=== PATIENT | female | born 1940 | race Caucasian/White ===

== ENCOUNTER 2019-07-19 10:50 | Emergency (ER) | payer OTHER, SELFPAY ==
[2019-07-19 11:12] VITALS: BP 145/65; PULSE 80; RESP 16; TEMP 36.2; O2SAT 97
--- NOTE | 2019-07-19 11:20 | ED.EAR ---
HPI - Ear Problem General Chief complaint: Ear Stated complaint: clogged ears Time Seen by Provider: 07/19/19 11:20 Source: patient and RN notes reviewed Mode of arrival: ambulatory Limitations: no limitations History of Present Illness HPI Narrative: 78-year-old female with history of tracheostomy presents with concern for decreased hearing. Reports bilateral decreased hearing progressively worsening over the course of a year. Is concerned her ears are clogged, denies any intervention for this. Denies any previous visits to her doctor for this. Denies any drainage or ear pain. Denies nasal congestion, rhinorrhea, sore throat, fever, shortness of breath, cough. MD Complaint: decreased hearing Related Data Home Medications Medication Instructions Recorded Confirmed carbidopa 25 mg-levodopa 100 mg 1 tablet PO TID 03/29/19 06/03/19 tablet ipratropium 0.5 mg-albuterol 3 mg 3 ml INHALATION QID PRN 03/29/19 06/03/19 (2.5 mg base)/3 mL nebulization soln ipratropium bromide 0.02 % 2.5 ml INHALATION QID PRN 03/29/19 06/03/19 solution for inhalation metoclopramide HCl 10 mg tablet 10 mg PO Q6H PRN 03/29/19 06/03/19 Allergies Allergy/AdvReac Type Severity Reaction Status Date / Time No Known Allergies Allergy Verified 05/16/16 12:32 Review of Systems Review of Systems: Narrative: CONSTITUTIONAL: Denies malaise, chills, sweats, or fever. EYES: Denies visual changes, redness, or discharge. ENT: Denies rhinorrhea, congestion, sinus pain, otalgia or sore throat. Reports bilateral decreased hearing CARDIOVASCULAR: Denies chest pain, palpitations, or edema. RESPIRATORY: Denies cough or dyspnea. NEUROLOGIC: Denies numbness, weakness, or headache. All systems reviewed & are unremarkable except as noted in HPI and below PMFSH Social History Social History Smoking status: Former smoker Second hand tobacco smoke exposure: No Smoking end date: 03/23/02 Alcohol intake: current Comments At time of signature, agree with nursing past medical, surgical, social and family history. There is no relevant family history pertinent to the presenting complaint Exam Narrative: Exam Narrative: GENERAL: Well-appearing, well-nourished, and in no acute distress. HEAD: Normocephalic EYES: PERRLA, conjunctivae clear ENT: Nares clear, no rhinorrhea. Mucous membranes moist. TM not visible due to cerumen impaction; no tragal tenderness. NECK: Supple. Tracheostomy intact, patent CHEST: No respiratory distress. Speaks in full sentences. HEART: Regular rate and rhythm. SKIN: Warm, dry NEURO: Alert and oriented x3. PSYCH: Normal mood and affect Course Course Emergency Course: Patient is aware of diagnosis, understands and agrees to treatment plan. Anticipatory guidance given. Patient agrees to follow-up as directed and is aware of reasons to seek care at the emergency department. Portions of this record may have been created with voice recognition software Vital Signs Vital signs: Vital Signs Temperature 97.2 F L 07/19/19 11:12 Pulse Rate 80 07/19/19 11:12 Respiratory Rate 16 07/19/19 11:12 Blood Pressure 145/65 H 07/19/19 11:12 Pulse Oximetry 97 07/19/19 11:12 Temperature 97.2 F L 07/19/19 11:12 Pulse Rate 80 07/19/19 11:12 Respiratory Rate 16 07/19/19 11:12 Blood Pressure 145/65 H 07/19/19 11:12 Pulse Oximetry 97 07/19/19 11:12 Reviewed. Patient has history of hypertension Procedures Ear Wax Removal Both Ears: Ear Wax Removal Date: 07/19/19 Ear Wax Removal Time: 11:00 Cerumenolytic Used: Cerumenex and 5-10% Sodium Bicarb solution Results: Re-examined: removal reattempted Ear Canal Exam: atraumatic Patient Tolerated Procedure: no complications Complications: no problems Technique: ear canal irrigated and ear canal curetted Additional Comments: Attempt at earwax removal wi
--- NOTE | 2019-07-19 12:27 | PC.NURSE ---
Trista Romano [employer]ENTICE continues to attempt to irrigate ears. Using debrox to soften wax. Patient tolerating well. Has spoke with son regarding length of stay in [facility] care.
== END 2019-07-19 13:08 | disposition home or self-care (01) ==
PROVIDERS: Emergency Provider Nurse Practitioner; PCP Internal Medicine
DX: H61.23 Impacted cerumen, bilateral (principal); Z87.891 Personal history of nicotine dependence; J44.9 Chronic obstructive pulmonary disease, unspecified; G20 Parkinson's disease; Z93.0 Tracheostomy status
CPT/HCPCS: 69210; 99213; A9270; G0463

== ENCOUNTER 2020-07-30 13:46 | Inpatient (IN) | payer OTHER, SELFPAY ==
[2020-07-30] VITALS (32 sets, daily range): BP systolic 139–184; BP diastolic 65–102; PULSE 80–105; RESP 14–24; TEMP 36.6; O2SAT 94–99; BMI 19.6
--- NOTE | ~2020-07-30 | MR_ITS ---
EXAMINATION: MR cervical spine wo con DATE: 07/31/2020 12:51 INDICATION: Neck pain. TECHNIQUE: Magnetic resonance imaging (MRI) of the cervical spine was performed without intravenous c ontrast. Sequences included sagittal T2-weighted FSE, sagittal STIR FSE, sagittal T1-weighted FSE, ax ial MERGE, and axial T2-weighted FSE. COMPARISON: None FINDINGS: There are changes of laryngectomy. Bone alignment is normal. Vertebral body heights are nor mal. There is moderately decreased disc height at C3-C4, C5-C6, and C6-C7. There is increased T2-weig hted signal intensity of the spinal cord at C5 involving the [place] matter. The following disc levels a re specifically discussed: C2-C3: The disc does not extend beyond the endplate margin. There is no uncovertebral joint osteoarth ritis. There is mild bilateral facet joint osteoarthritis. There is no neural foraminal stenosis. The re is no central canal stenosis. C3-C4: The disc is bulging. There is mild right and moderate left uncovertebral joint osteoarthritis. There is mild right and moderate left facet joint osteoarthritis. There is mild right and moderate l eft neural foraminal stenosis. There is moderate central canal stenosis with ventral and dorsal inden tation of the spinal cord. C4-C5: The disc is bulging. There is mild right and moderate left uncovertebral joint osteoarthritis. There is mild bilateral facet joint osteoarthritis. There is mild right and moderate left neural for aminal stenosis. There is mild central canal stenosis. C5-C6: The disc is bulging. There is severe bilateral uncovertebral joint osteoarthritis. There is mi ld bilateral facet joint osteoarthritis. There is mild right and moderate left neural foraminal steno sis. There is moderate central canal stenosis with ventral and dorsal indentation of the spinal cord. C6-C7: The disc is bulging. There is mild bilateral uncovertebral joint osteoarthritis. There is mode rate bilateral facet joint osteoarthritis. There is mild bilateral neural foraminal stenosis. There i s mild central canal stenosis. C7-T1: The disc does not extend beyond the endplate margin. There is no uncovertebral joint osteoarth ritis. There is mild right and severe left facet joint osteoarthritis. There is mild bilateral neural foraminal stenosis. There is no central canal stenosis. IMPRESSION: 1. 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 2. Moderate cervical spondylosis. Reviewed, dictated and finalized at location B.
--- NOTE | ~2020-07-30 | US_ITS ---
EXAMINATION: US venous doppler [facility] DATE: 07/31/2020 13:12 INDICATION: Lower limb swelling and cramping TECHNIQUE: Grayscale ultrasound images without and with compression and Doppler ultrasound images of the bilateral lower extremity veins were obtained. COMPARISON: None. FINDINGS: The visualized portions of right common femoral vein, profunda (deep) femoral vein, femoral vein, pop liteal vein, posterior tibial veins, peroneal veins, gastrocnemius vein and greater saphenous vein ou tflow are patent. The visualized portions of left common femoral vein, profunda femoral vein, femoral vein, popliteal v ein, posterior tibial veins, peroneal veins, gastrocnemius vein and greater saphenous vein outflow ar e patent. IMPRESSION: 1. No deep venous thrombosis in either lower limb. Reviewed, dictated and finalized at location A.
--- NOTE | ~2020-07-30 | MR_ITS ---
EXAMINATION: MR brain/brain stem wo con DATE: 07/31/2020 12:51 INDICATION: Left facial weakness. TECHNIQUE: Magnetic resonance imaging (MRI) of the brain and brainstem was performed without intraven ous contrast. Sequences included sagittal and axial T1-weighted FSE, axial diffusion-weighted FS EPI, axial T2*-weighted GRE, axial T2-weighted FLAIR Propeller, and axial T2-weighted Propeller. Apparent diffusion coefficient (ADC) maps were created. COMPARISON: Brain MRI 01/22/2015, head CT 07/30/2020 FINDINGS: The ventricles are dilated out of proportion to the size of the sulci. There are scattered areas of nonspecific increased T2-weighted signal intensity in the cerebral white matter. There is no intracranial hemorrhage, acute infarction, or abnormal intracranial mass lesion. The orbits are norm al. The paranasal sinuses are clear. The mastoid air cells are normal. IMPRESSION: 1. Chronic ventriculomegaly. Correlate clinically for normal pressure hydrocephalus. 2. Stable mild nonspecific cerebral white matter disease, which likely represents chronic small vesse l ischemic disease. Reviewed, dictated and finalized at location B. IMPRESSION: 1. Chronic ventriculomegaly. Correlate clinically for normal pressure hydroceph alus. 2. Stable mild nonspecific cerebral white matter disease, which likely represen ts chronic small vessel ischemic disease.
--- NOTE | ~2020-07-30 | XR_ITS ---
EXAMINATION: XR chest 2V DATE: 07/31/2020 12:59 INDICATION: Weakness TECHNIQUE: frontal and lateral views of the chest were obtained. COMPARISON: Chest radiograph and CT dated 05/25/12 FINDINGS: Gas-filled bowel underlying the chronically elevated left hemidiaphragm. No focal airspace opacities, pulmonary edema, pleural effusion or pneumothorax. Heart size is normal. Unchanged prominent aortic shadow consistent with unfolding of the aortic arch and ectasia of the ascending thoracic aorta as se en on prior CT. Postoperative changes with multiple surgical clips at the base of the neck. Moderate osteoarthritis at the right shoulder. IMPRESSION: 1. Chronic elevation of the left hemidiaphragm. No other evident acute cardiopulmonary disease. Reviewed, dictated and finalized at location A. IMPRESSION: 1. Chronic elevation of the left hemidiaphragm. No other evident acute cardiopu lmonary disease.
--- NOTE | ~2020-07-30 | CT_ITS ---
EXAMINATION: CTA chest PE protocol EXAM DATE: 08/01/2020 18:47 INDICATION: Shortness of breath and tachycardia. TECHNIQUE: Spiral CTA of the chest (pulmonary arteries) was performed with 100 cc Omnipaque 350 intr avenous contrast injection. Images were acquired during the pulmonary arterial phase. Coronal maxi mum intensity projection 3D-reconstructions were created by the technologist on dedicated workstation . Axial, coronal and sagittal reformatted images were reviewed. The dose-length product (DLP) for t his examination was 363.51 mGy-cm. The exposure was tailored according to patient size (auto mA exp osure control), and iterative reconstruction (ASIR) was used as additional dose reduction technique. Comparison is made to prior examination from 05/25/2012. FINDINGS: The main, central pulmonary arteries are dilated which can indicate elevated pulmonary radha rial pressure, pulmonary arterial hypertension. Pulmonary arteries are well opacified and without in traluminal filling defects. No thoracic aortic dissection. The ascending aorta measures 4.2 cm diam eter, mildly dilated. There is chronic left hemidiaphragm elevation, probably paralysis, with multise gmental left lower lobe collapse. Additional superimposed left lower lobe airspace disease probably b acterial pneumonia, but cancer not excludable. There is trace left pleural effusion. There is tracheo stomy. There is no mediastinal, hilar or axillary lymphadenopathy. There is no pneumothorax. Hea rt normal in size. There is mild coronary arterial calcification, arterial sclerosis. There is mild emphysema. Upper abdomen is unremarkable. There is thoracic spondylosis without osteoblastic or os teolytic lesions identified. IMPRESSION: 1. No pulmonary emboli. 2. Elevated left hemidiaphragm, probably paralysis with adjacent chronic atelectasis but also superi mposed left lower lobe bacterial pneumonia suspected. Underlying cancer not excludable. Please clinic ally correlate, consider follow-up CT. 3. Mildly aneurysmal ascending aorta. 4. Pulmonary arterial hypertension. 5. Mild emphysema. Reviewed, dictated and finalized at location A. IMPRESSION: 1. No pulmonary emboli. 2. Elevated left hemidiaphragm, probably paralysis with adjacent chronic atele ctasis but also superimposed left lower lobe bacterial pneumonia suspected. Und erlying cancer not excludable. Please clinically correlate, consider follow-up CT. 3. Mildly aneurysmal ascending aorta. 4. Pulmonary arterial hypertension. 5. Mild emphysema.
--- NOTE | ~2020-07-30 | CT_ITS ---
EXAMINATION: CTA BRAIN/CAROTID DATE: 07/30/2020 13:59 INDICATION: Right-sided facial droop TECHNIQUE: Computed tomographic angiography (CTA) of the head and neck was performed with 100 mL Omni paque-350 intravenous contrast. Multiplanar reconstructions and maximum intensity projection 3D-recon structions of the carotid arteries and of the intracranial arteries were created by the technologist on a separate workstation. Precontrast CT of the head was also obtained. Automated exposure control and iterative reconstruction technique were employed.The dose-length product was 1654.01 mGy-cm. COMPARISON: Brain MR dated 01/22/2015 FINDINGS: Carotid arteries: There is 70% stenosis of the right carotid bulb relative to normal distal artery lumen diameter (NASC ET criteria). There is 75% stenosis of the left carotid bulb relative to normal distal artery lumen d iameter. Ectatic ascending thoracic aorta measuring 4.0 cm in maximal diameter. Mild emphysema and mi ld calcified pleural parenchymal scarring at the bilateral apices. Postoperative changes in the neck with multiple surgical clips. There is also a tracheostomy tube in expected position at the thoracic inlet. Small amount of mucus within the intrathoracic trachea. Mild to moderate cervical spondylosis. Head: No acute intracranial hemorrhage, acute infarction or abnormal extra axial fluid collection. There is mild scattered white matter hypoattenuation consistent with chronic small vessel ischemic disease. C hronic symmetric enlargement of the ventricles which is disproportionate to the mild enlargement of t he sulci which could be related to either central predominant atrophy or normal pressure hydrocephalu s. No mass/mass effect. No abnormally enhancing brain lesions. The orbits and mastoid air cells are n ormal. Mild mucoperiosteal thickening the bilateral ethmoid and right maxillary sinuses. Intracranial arteries Atherosclerotic plaque throughout the bilateral carotid siphons with 50% stenosis on the right. There appears to be >70% stenosis at the left carotid siphon however resolution is insufficient to more ac curately quantify the degree of stenosis. There is no hemodynamically significant stenosis in the bas ilar artery. Vertebral arteries are codominant. Mild, <50% stenosis on the right vertebral artery. Th ere are no aneurysms identified. The right A1 and P1 segments are patent. The left anterior cerebral artery appears to be supplied exclusively by the right P1 segment and a patent anterior communicating artery. The left P1 segment is diminutive with the majority of flow to the left posterior cerebral a rteries appearing to be supplied via a larger caliber left posterior communicating artery. There is a patent diminutive right posterior communicating artery. Cerebral arterial arborization appears symme tric. IMPRESSION: 1. No evident acute intracranial process. Dr. Garcia discussed these findings with Dr. Lin at 2:04 PM. 2. 70% stenosis of the right carotid bulb relative to normal distal artery lumen diameter (NASCET cri teria). 3. 75% stenosis of the left carotid bulb relative to normal distal artery lumen diameter. 4. 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 5. Chronic symmetric enlargement of the ventricles which is disproportionate to the sulci which could be related to either central predominant atrophy or normal pressure hydrocephalus (NPH: clinical tri ad ataxia/gait disturbance, dementia, urinary incontinence). Reviewed, dictated and finalized at location A.
--- NOTE | 2020-07-30 13:52 | ECG_ITS ---
Measurements Intervals [place] Rate: 101 P: 52 MD: 165 QRS: 10 QRSD: 93 T: 206 QT: 345 QTc: 448 Interpretive Statements SINUS TACHYCARDIA INCOMPLETE RIGHT BUNDLE BRANCH BLOCK BORDERLINE ST-T WAVE ABNORMALITY- DIFFUSE LEADS BASELINE ARTIFACT- I, II, III, AVR, AVL, AVF, V1-V2, V6 BORDERLINE ECG Electronically Signed On 07-30-2020 16:07:16 CDT by Ananth Madsen D.O.
[2020-07-30 14:23] LABS: Basophils Percent Auto 0.5 % (0.2-1.2); Eosinophils Percent Auto 0.4 % (0-4.4); Hematocrit 36.3 % (37.0-47.0); Hemoglobin 11.8 g/dL (12.0-15.0); Immature Granulocyte Absolute 0.03 K/mm3 (0.00-0.031); Immature Granulocyte Percent A 0.5 % (0-0.5); Lymphocytes Absolute Auto 0.74 K/mm3 (0.9-3.2); Lymphocytes Percent Auto 13.5 % (18.3-44.2); Mean Corpuscular HGB Conc 32.5 g/dl (32-36); Mean Corpuscular Hemoglobin 28.4 pg (26-34); Mean Corpuscular Volume 87.3 fl (80-100); Monocytes Absolute Auto 0.4 K/mm3 (0.1-0.6); Monocytes Percent Auto 6.4 % (2.6-8.5); Neutrophils Absolute Auto 4.3 K/mm3 (1.3-6.7); Neutrophils Percent Auto 78.7 % (45.5-73.1); Platelet Count Result 248 k/mm3 (150-375); Red Blood Count 4.16 M/mm3 (4.2-5.4); Red Cell Distribution Width 13.2 % (11.5-14.5); White Blood Count 5.5 K/mm3 (4.5-10.0)
[2020-07-30 14:23] LABS: Glucose Point of Care 89 (65-105)
[2020-07-30 14:38] LABS: Alanine Aminotransferase 10 U/L (4-35); Albumin Level 4.1 g/dL (3.5-5.1); Alkaline Phosphatase 47 U/L (38-126); Anion Gap 5 mmol/L (8-16); Aspartate Amino Transferase 31 U/L (14-36); Bilirubin,Total 0.7 mg/dL (0.2-1.3); Blood Urea Nitrogen 19 mg/dL (7-17); Calcium 8.9 mg/dL (8.4-10.2); Carbon Dioxide 28 mmol/L (22-30); Chloride 99 mmol/L (98-107); Estimated Glomerular Filt Rate 60; Glucose 87 mg/dL (65-105); Potassium 4.2 mmol/L (3.4-5.0); Sodium 132 mmol/L (137-145)
--- NOTE | 2020-07-30 15:01 | ED.GENADULT ---
HPI - General Adult General Chief complaint: Suspected CVA Stated complaint: R side weakness and facial droop Time Seen by Provider: 07/30/20 13:48 Source: patient History of Present Illness HPI narrative: Patient is a 79 y/o female complaining of neck pain and generalized weakness starting about 10:00 AM this morning. She describes her neck pain as aching and rates it as 2/10. She states that being propped up helped with her pain. She denies any recent injury. She states that her legs are usually heavy , but they're worse when she woke up this morning. She states that she went to sleep around 11:00 PM. She is not ambulatory at baseline and she uses a wheelchair. She contacted her son around 12:29 PM according her son and he called EMS. EMS noticed patient patient had left facial droop. However, patient is not sure when her facial droop started. 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 Most communication is done through writing. Related Data Home Medications Medication Instructions Recorded Confirmed ipratropium 0.5 mg-albuterol 3 mg 3 ml INHALATION QID PRN 03/29/19 12/31/19 (2.5 mg base)/3 mL nebulization soln ipratropium bromide 0.02 % 2.5 ml INHALATION QID PRN 03/29/19 12/31/19 solution for inhalation Allergies Allergy/AdvReac Type Severity Reaction Status Date / Time No Known Allergies Allergy Verified 12/31/19 11:05 Review of Systems Constitutional: Constitutional: Denies chills, Denies fever(s), Denies headache(s) and Denies weakness Eyes: Eyes: Denies blurry vision ENT: Denies headache(s) and Denies neck pain Cardiovascular: Cardiovascular: Denies chest pain and Denies dyspnea Respiratory: Respiratory: Denies cough and Denies dyspnea Gastrointestinal: Gastrointestinal: Denies abdominal pain, Denies diarrhea, Denies nausea and Denies vomiting Genitourinary: Genitourinary: Denies hematuria and Denies dysuria Musculoskeletal: Musculoskeletal: Denies back pain and Reports neck pain Neurologic: Reports as per HPI, Denies headache(s) and Reports weakness PMFSH Family History Family History Father Family history of heart disease in male family member before age 55 Mother Family history of heart disease in male family member before age 55 Other Family history of malignant neoplasm Family history of malignant neoplasm of breast in first degree relative Social History Social History Smoking status: Former smoker Second hand tobacco smoke exposure: No Smoking end date: 03/23/02 Alcohol intake: current Exam Const: General: no acute distress and well developed Orientation/consciousness: oriented to person, oriented to place, oriented to time and patient oriented x3 HENMT: Head: normocephalic Ears: external ears normal General nose exam: Normal external nose present Eyes: General: appearance normal, both eyes and all related structures Conjunctivae: conjunctivae normal Neck: Neck: normal visual inspection, full ROM and other (s/p laryngectomy) Chest: Chest palpation & inspection: normal inspection of the chest and no tenderness Resp: Effort & Inspection: normal respiratory effort Auscultation: clear to auscultation bilaterally Cardio: Rate: regular rate Rhythm: regular rhythm GI: GI Palp: No abdominal tenderness and Yes Soft to palpation Skin: General skin exam: normal color and turgor normal Neuro: General: oriented to person, oriented to place, oriented to time and patient oriented x3 Cranial nerves: Yes facial symmetry (left facial droop) Cognition (Neuro): normal cognition Speech: Other speech findings present (Neuro) (dysarthria is difficulty to assess due to history of laryngectomy) Motor exam (neuro): Other motor observations present (leg strength 3/5 bilaterally, possible chronic) Sensory Exam: normal sensation Extrem: Gen
[2020-07-30] MEDS: CYCLOBENZAPRINE HCL 10 MG TABLET PO (15:25)
--- NOTE | 2020-07-30 19:31 | ADMGEN ---
This patient, Anabel Tavarez, was admitted to Medical Room 342-01. Patient/family oriented to hospital policies and general routines including ID bracelet, bed and alarms, visiting hours, pain management, procedures, bathroom and other care routines, personal items, smoking policy, room service/diet, and visiting hours. Information on how to activate the Rapid Response Team has been discussed. Patient/Family are encouraged to report perceived risks to care and to ask questions if they do not understand what they are told or what they should do.
[2020-07-31] VITALS (12 sets, daily range): BP systolic 98–134; BP diastolic 42–72; PULSE 72–88; RESP 16–20; TEMP 36.3–36.7; O2SAT 94–97
--- NOTE | 2020-07-31 02:33 | PM.IMHP ---
H&P: HPI History of Present Illness Date/Time: 07/31/20 02:33 Chief Complaint: neck pain Narrative: Patient is a 79 y/o female who presents to the ED wit neck pain and weakness that she was not able to get up. communciation was difficult due ot her tracheostomy status, and was done with writing. she states she was weak and her neck was aching this am and denies any obvious injury. she called her son and he called EMS. EMS noticed pateint had left facial droo pand hence workup is done for possible stroke. 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 she reprots the main issue is her neck pain and feels like she pulled the muscle. no fever, chils. no sob, chest pain or cough. she also rerpots her legs feels heavy but they always have felt heavy. Review of Systems Review of Systems: Narrative: - CONSTITUTIONAL: Denies weight loss, fever and chills. - HEENT: Denies changes in vision and hearing - RESPIRATORY: Denies SOB and cough. - CV: Denies palpitations and CP. - GI: Denies abdominal pain, nausea, vomiting and diarrhea. - : Denies dysuria and urinary frequency. - MSK: Denies myalgia and joint pain. - SKIN: Denies rash and pruritus. - NEUROLOGICAL: Denies headache and syncope. - PSYCHIATRIC: Denies recent changes in mood. Denies anxiety and depression. All systems reviewed & are unremarkable except as noted in HPI and below Constitutional: Constitutional: Reports fatigue and Reports weakness Neurologic: Reports weakness Endocrine: Endocrine: Reports fatigue [facility] Family History Family History Father Family history of heart disease in male family member before age 55 Mother Family history of heart disease in male family member before age 55 Other Family history of malignant neoplasm Family history of malignant neoplasm of breast in first degree relative Social History Social History Smoking status: Former smoker Second hand tobacco smoke exposure: No Smoking end date: 03/23/02 Alcohol intake: never Substance use: never Spiritual care concerns: No Meds Home Medications and Allergies Home Medications Medication Instructions Recorded Confirmed Type ipratropium 0.5 mg-albuterol 3 mg 3 ml INHALATION QID PRN 03/29/19 07/30/20 History (2.5 mg base)/3 mL nebulization soln ipratropium bromide 0.02 % 2.5 ml INHALATION QID PRN 03/29/19 07/30/20 History solution for inhalation furosemide 20 mg tablet 20 mg PO BID #180 tablet 10/04/19 07/30/20 Rx levothyroxine 150 mcg tablet 150 mcg PO DAILY #90 tablet 12/15/19 07/30/20 Rx carbidopa 25 mg-levodopa 100 mg 1 tablet PO TID #270 tablet 01/26/20 07/30/20 Rx tablet metoclopramide HCl 10 mg tablet 10 mg PO BID #180 tablet 07/02/20 07/30/20 Rx Allergies Allergy/AdvReac Type Severity Reaction Status Date / Time No Known Allergies Allergy Verified 12/31/19 11:05 Vital Signs Vital Signs - 24 hr 07/30/20 14:06 07/30/20 14:07 07/30/20 14:15 Temperature 97.8 F Pulse Rate 104 H 102 H Respiratory Rate 24 H 23 H Blood Pressure 177/102 H Pulse Oximetry 95 94 95 07/30/20 14:16 07/30/20 14:31 07/30/20 14:32 Temperature Pulse Rate 105 H 105 H 104 H Respiratory Rate 19 16 19 Blood Pressure 181/99 H 176/71 H Pulse Oximetry 96 98 98 07/30/20 14:45 07/30/20 14:46 07/30/20 14:49 Temperature Pulse Rate 97 101 H Respiratory Rate 16 18 Blood Pressure 147/88 H Pulse Oximetry 96 96 99 07/30/20 15:10 07/30/20 15:15 07/30/20 15:17 Temperature Pulse Rate 94 95 94 Respiratory Rate 18 18 14 Blood Pressure 152/92 H Pulse Oximetry 98 96 99 07/30/20 15:30 07/30/20 15:31 07/30/20 15:45 Temperature Pulse Rate 95 94 90 Respiratory Rate 17 18 16 Blood Pressure 152/76 H Pulse Oximetry 97 98 07/30/20 15:46
[2020-07-31] MEDS: CYCLOBENZAPRINE HCL 10 MG TABLET PO (04:45)
[2020-07-31] MEDS: LEVOTHYROXINE SODIUM 150 MCG TABLET PO (05:46)
[2020-07-31] MEDS: CARBIDOPA/LEVODOPA 25/100 MG TABLET 1 TABLET PO ×3 (09:12→18:00)
[2020-07-31] MEDS: METOCLOPRAMIDE HCL 10 MG TABLET PO ×2 (09:12→18:00)
[2020-07-31] MEDS: LIDOCAINE 5% PATCH 1 PATCH TRANSDERM (09:12)
[2020-07-31] MEDS: FUROSEMIDE 20 MG TABLET PO ×2 (09:13→18:00)
--- NOTE | 2020-07-31 11:24 | PM.IMPN ---
Progress Note: A&P Assessment and Plan (1) Generalized weakness: Code(s): R53.1 - Weakness Status: Acute Assessment and Plan: Could be chronic debilitation versus infection. Will check urinalysis and chest x-ray to rule out underlying infection. The patient is nonambulatory, wheelchair bound and lives alone with help from her son most mornings and evenings. PT OT have been ordered for further evaluation. (2) Neck pain: Code(s): M54.2 - Cervicalgia Status: Acute Assessment and Plan: Patient was reporting neck pain which brought her into the emergency room. She was found to be leaning back in her wheelchair to serve her her neck when her son found her. She has never had neck issues in the past, per son. Patient also had weakness trying to get up out of her wheelchair. Most likely due to muscle strain, no recent falls or injury. Patient was placed on a muscle relaxant, lidocaine patch, heating pad Physical and occupational therapy have been ordered MRI cervical spine has been ordered and pending Continue monitoring with symptomatic care. (3) Facial droop: Code(s): R29.810 - Facial weakness Status: Acute Assessment and Plan: Patient was found to have a facial droop which she states is chronic from her laryngeal surgery. CT head and neck with contrast showed no acute stroke like findings. Tele shows NSR rate 90 bpm. No acute abnormality. MRI brain pending Neurology has been consulted and their input is greatly appreciated. Patient denies any new stroke-like symptoms Continue PT/OT Continue monitoring. (4) Cerebral ventriculomegaly: Code(s): G93.89 - Other specified disorders of brain Status: Acute Assessment and Plan: Appears to be chronic symmetric venticulomegaly. MRI Brain/Brainstem w/o on 01/22/15 showed mild chronic ventriuclar prominence disproportinate to brain parenchymal atrophy/sulcal size. MRI Brain pending. Neurology has been consulted. (5) Carotid artery stenosis: Qualifiers: Laterality: bilateral Qualified Code(s): I65.23 - Occlusion and stenosis of bilateral carotid arteries Code(s): I65.29 - Occlusion and stenosis of unspecified carotid artery Status: Acute Assessment and Plan: CT H&N with contrast shows 70% stenosis of right carotid bulb, 75% stenosis of left carotid buld, atherosclerotic disease at the bilateral carotid siphons 50% in right, >70% on left. Will start on aspirin and check lipid panel in the morning She will need be placed on a statin medication Monitor blood pressure She will need further follow-up with cardiology/vascular surgery Continue monitoring. (6) Dependent edema: Code(s): R60.9 - Edema, unspecified Status: Acute Assessment and Plan: Trace edema noted. Continue Lasix [address] Bakari hose. Elevate legs. (7) Chronic obstructive pulmonary disease, unspecified: Code(s): J44.9 - Chronic obstructive pulmonary disease, unspecified Status: Acute Assessment and Plan: Wheezing noted right greater than left. Will schedule breathing treatments q.6 hours with albuterol and ipratropium. Chest x-ray has been ordered for further evaluation and rule out acute infection Continue monitoring respiratory status. (8) Hypothyroidism (acquired): Code(s): E03.9 - Hypothyroidism, unspecified Status: Acute Assessment and Plan: Continue levothyroxine. (9) Parkinson's disease: Code(s): G20 - Parkinson's disease Status: Acute
[2020-07-31] MEDS: ASPIRIN 81 MG ENTERIC TABLET PO (13:26)
[2020-07-31] MEDS: IPRATROPIUM BR 0.02% INH SOLN 0.5 MG/2.5 ML VIAL INHALATION ×2 (14:05→20:36)
[2020-07-31] MEDS: ALBUTEROL SULFATE NEB 2.5 MG/0.5 ML INH INHALATION ×2 (14:06→20:36)
--- NOTE | 2020-07-31 16:08 | WPDNEURCNPN ---
Assessment and Plan Assessment and plan (1) Cerebral ventriculomegaly: Code(s): G93.89 - Other specified disorders of brain Status: Acute (2) Generalized weakness: Code(s): R53.1 - Weakness Status: Acute (3) Neck pain: Code(s): M54.2 - Cervicalgia Status: Acute (4) Cervical myelopathy: Code(s): G95.9 - Disease of spinal cord, unspecified Status: Acute (5) Carotid artery stenosis: Qualifiers: Laterality: bilateral Qualified Code(s): I65.23 - Occlusion and stenosis of bilateral carotid arteries Code(s): I65.29 - Occlusion and stenosis of unspecified carotid artery Status: Acute Additional Plan brought to the hospital for the complaints of neck pain and weakness with observation of the left-sided facial droop and possibility of stroke evaluation revealed chronic ventriculomegaly with the possibility of normal pressure hydrocephalus and mild nonspecific white matter disease, negative Doppler study of the lower extremities head neck CTA with 70% stenosis of the right carotid bulb 75% stenosis of left carotid bulb and atherosclerotic disease of the bilateral carotid siphon with 50% stenosis and chronic symmetric enlargement of the ventricle routine lab studies are unremarkable. discussed with the family multifactorial problem such as possibility of normal pressure hydrocephalus, cervical myelopathy, and underlying Parkinson disease with the want to pursue further or not Consult date: 07/31/20 Time Seen: 12:00 HPI: Anabel Tavarez is a 79 year old female admitted to the hospital through the emergency room for the complaints of neck pain and weakness patient has ongoing tracheostomy status and main communication was done with writing he did not give history of any specific injury she called her son and son called the EMS who brought her to the emergency room of possible workup up for the stroke, patient is a former smoker by history does not drink alcohol has been taking multiple medications including carbidopa levodopa 1 tab 3 times a day Review of Systems Review of Systems: All systems reviewed & are unremarkable except as noted in HPI and below PMFSH Family History Family History Father Family history of heart disease in male family member before age 55 Mother Family history of heart disease in male family member before age 55 Other Family history of malignant neoplasm Family history of malignant neoplasm of breast in first degree relative Social History Social History Smoking status: Former smoker Second hand tobacco smoke exposure: No Smoking end date: 03/23/02 Alcohol intake: never Substance use: never Spiritual care concerns: No Meds Home Medications and Allergies Home Medications Medication Instructions Recorded Confirmed Type ipratropium 0.5 mg-albuterol 3 mg 3 ml INHALATION QID PRN 03/29/19 07/30/20 History (2.5 mg base)/3 mL nebulization soln ipratropium bromide 0.02 % 2.5 ml INHALATION QID PRN 03/29/19 07/30/20 History solution for inhalation furosemide 20 mg tablet 20 mg PO BID #180 tablet 10/04/19 07/30/20 Rx levothyroxine 150 mcg tablet 150 mcg PO DAILY #90 tablet 12/15/19 07/30/20 Rx carbidopa 25 mg-levodopa 100 mg 1 tablet PO TID #270 tablet 01/26/20 07/30/20 Rx tablet metoclopramide HCl 10 mg tablet 10 mg PO BID #180 tablet 07/02/20 07/30/20 Rx Allergies Allergy/AdvReac Type Severity Reaction Status Date / Time No Known Allergies Allergy Verified 12/31/19 11:05 Vital Signs Vital Signs - 24 hr 07/30/20 16:22 07/30/20 16:30 07/30/20 16:31 Temperature Pulse Rate 91 92 89 Respiratory Rate 18 19 14 Blood Pressure 166/69 H Pulse Oximetry 97 98 07/30/20 16:32 07/30/20 16:49 07/30/20 17:15 Temperature Pulse Rate 83 93 90 Respiratory Rate 15 17 18 Blood Pressure P
[2020-08-01] VITALS (18 sets, daily range): BP systolic 121–199; BP diastolic 50–104; PULSE 74–144; RESP 18–20; TEMP 36.2–37.7; O2SAT 94–98
[2020-08-01] MEDS: ALBUTEROL SULFATE NEB 2.5 MG/0.5 ML INH INHALATION ×3 (02:23→13:31)
[2020-08-01] MEDS: IPRATROPIUM BR 0.02% INH SOLN 0.5 MG/2.5 ML VIAL INHALATION ×3 (02:23→13:32)
[2020-08-01 03:34] LABS: Add Urine Microscopic? YES; Appearance Urine Cloudy (Clear); Bacteria Urine Trace /hpf; Bilirubin Urine Negative (Negative); Blood Urine Negative (Negative); Color Urine Yellow (Yellow); Glucose Urine UA Negative (Negative); Ketones Urine Negative (Negative); Leukocyte Esterase Ur Negative LEU/UL (Negative); Mucus Urine Rare /lpf; Nitrate Urine Negative (Negative); Protein Urine Negative (Negative); RBC Urine 0-2 /hpf (0-2); Specific Grav Ur 1.015 (1.001-1.035); Squamous Epithelial Cell Urine Few /hpf (Few); Urobilinogen Urine Negative mg/dL (<2.0); WBC Urine 0-3 /hpf
[2020-08-01] MEDS: LEVOTHYROXINE SODIUM 150 MCG TABLET PO (05:47)
[2020-08-01 06:09] LABS: Basophils Percent Auto 0.7 % (0.2-1.2); Eosinophils Percent Auto 0.9 % (0-4.4); Hematocrit 32.3 % (37.0-47.0); Hemoglobin 10.4 g/dL (12.0-15.0); Immature Granulocyte Absolute 0.02 K/mm3 (0.00-0.031); Immature Granulocyte Percent A 0.5 % (0-0.5); Lymphocytes Absolute Auto 1.06 K/mm3 (0.9-3.2); Mean Corpuscular HGB Conc 32.2 g/dl (32-36); Mean Corpuscular Hemoglobin 27.7 pg (26-34); Mean Corpuscular Volume 86.1 fl (80-100); Monocytes Absolute Auto 0.4 K/mm3 (0.1-0.6); Monocytes Percent Auto 8.6 % (2.6-8.5); Neutrophils Absolute Auto 2.9 K/mm3 (1.3-6.7); Neutrophils Percent Auto 65.3 % (45.5-73.1); Platelet Count Result 219 k/mm3 (150-375); Red Blood Count 3.75 M/mm3 (4.2-5.4); Red Cell Distribution Width 13.2 % (11.5-14.5); White Blood Count 4.4 K/mm3 (4.5-10.0)
[2020-08-01 06:22] LABS: Potassium 3.6 mmol/L (3.4-5.0)
[2020-08-01 06:30] LABS: Anion Gap 8 mmol/L (8-16); Blood Urea Nitrogen 21 mg/dL (7-17); Calcium 8.7 mg/dL (8.4-10.2); Carbon Dioxide 28 mmol/L (22-30); Chloride 102 mmol/L (98-107); Cholesterol 186 mg/dL (0-200); Estimated CRCL calculation 35 ml/min; Estimated Glomerular Filt Rate 53; Glucose 88 mg/dL (65-105); HDL Direct 84 mg/dL; Sodium 138 mmol/L (137-145); Triglycerides 58 mg/dL (<150)
[2020-08-01 06:33] LABS: LDL Cholesterol Direct 76 mg/dL
[2020-08-01] MEDS: ASPIRIN 81 MG ENTERIC TABLET PO (10:08)
[2020-08-01] MEDS: CARBIDOPA/LEVODOPA 25/100 MG TABLET 1 TABLET PO ×3 (10:08→18:58)
[2020-08-01] MEDS: ATORVASTATIN 40 MG TABLET PO (10:08)
[2020-08-01] MEDS: FUROSEMIDE 20 MG TABLET PO ×2 (10:09→18:58)
[2020-08-01] MEDS: METOCLOPRAMIDE HCL 10 MG TABLET PO ×2 (10:09→18:58)
[2020-08-01] MEDS: ENOXAPARIN 40 MG/0.4 ML SYRINGE SUB-Q (10:09)
[2020-08-01] MEDS: LIDOCAINE 5% PATCH 1 PATCH TRANSDERM (10:10)
--- NOTE | 2020-08-01 16:14 | PM.IMPN ---
Progress Note: A&P Assessment and Plan (1) Tachycardia: Code(s): R00.0 - Tachycardia, unspecified Status: Acute Assessment and Plan: Tele shows NSR rate 107 bpm, has been going up to the 120s. No acute abnormality. Venous Dopplers were negative for DVT. Patient has been on DVT prophylaxis. Will order order CTA chest to rule out PE versus underlying pneumonia. Patient was also on albuterol inhalers which could cause tachycardia. These were switched to p.r.n. since she is no longer having wheezing. Continue monitoring. (2) Cervical myelopathy: Code(s): G95.9 - Disease of spinal cord, unspecified Status: Acute Assessment and Plan: Patient was reporting neck pain which brought her into the emergency room. She was found to be leaning back in her wheelchair to serve her her neck when her son found her. She has never had neck issues in the past, per son. Patient also had weakness trying to get up out of her wheelchair. Most likely due to muscle strain, no recent falls or injury. 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 Moderate cervical spondylosis. Talked with the neurologist who recommend her following up with a neurosurgeon for further evaluation Continue monitoring with symptomatic care. (3) Generalized weakness: Code(s): R53.1 - Weakness Status: Acute Assessment and Plan: Could be chronic debilitation versus infection. No signs of infection, normal urinalysis, normal chest x-ray The patient is nonambulatory, wheelchair bound and lives alone with help from her son most mornings and evenings PT OT have been ordered for further evaluation. (4) Facial droop: Code(s): R29.810 - Facial weakness Status: Acute Assessment and Plan: Patient was found to have a facial droop which she states is chronic from her laryngeal surgery. CT head and neck with contrast showed no acute stroke like findings. MRI brain No new or old CVA. *Normal pressure hydrocephalis found on MRI from 2015. Neurology has been consulted and their input is greatly appreciated. Patient denies any new stroke-like symptoms. Continue PT/OT Continue monitoring. (5) Cerebral ventriculomegaly: Code(s): G93.89 - Other specified disorders of brain Status: Acute Assessment and Plan: Appears to be chronic symmetric venticulomegaly. MRI Brain/Brainstem w/o on 01/22/15 showed mild chronic ventricular prominence disproportinate to brain parenchymal atrophy/sulcal size. MRI Brain showed Chronic ventriculomegaly. Correlate clinically for normal pressure hydrocephalus. Stable mild nonspecific cerebral white matter disease, which likely represents chronic small vessel ischemic disease. Neurology has been consulted and recommend following up with Neurosurgery. (6) Carotid artery stenosis: Qualifiers: Laterality: bilateral Qualified Code(s): I65.23 - Occlusion and stenosis of bilateral carotid arteries Code(s): I65.29 - Occlusion and stenosis of unspecified carotid artery Status: Acute Assessment and Plan: CT H&N with contrast shows 70% stenosis of right carotid bulb, 75% stenosis of left carotid buld, atherosclerotic disease at the bilateral carotid siphons 50% in right, >70% on left. Continue on aspirin and lipid panel normal. She will need be placed on a statin medication Monitor blood pressure She will need further follow-up with cardiology/vascular surgery Continue monitoring. (7) Dependent edema: Code(s): R60.9 - Edema, un
[2020-08-01] MEDS: METOPROLOL TARTRATE INJ 5 MG/5 ML VIAL IV PUSH (18:22)
--- NOTE | 2020-08-01 18:37 | ECG_ITS ---
Measurements Intervals [place] Rate: 108 P: -10 TX: 147 QRS: -1 QRSD: 79 T: -80 QT: 314 QTc: 422 Interpretive Statements SINUS TACHYCARDIA EARLY PRECORDIAL R/S TRANSITION BORDERLINE ST-T WAVE ABNORMALITY- DIFFUSE LEADS BASELINE ARTIFACT- I, II, III, AVR, AVL, AVF, V1-V3 ABNORMAL ECG Electronically Signed On 08-02-2020 6:40:58 CDT by Ananth Madsen D.O.
[2020-08-01] MEDS: NIFEdipine 30 MG TAB.ER.24 PO (18:58)
[2020-08-01] MEDS: GABAPENTIN 100 MG CAPSULE PO (18:58)
[2020-08-01 19:33] LABS: Lactic Acid Reflex 1.9 mmol/L (0.7-2.1)
[2020-08-01] MEDS: ACETAMINOPHEN 325 MG TABLET 650 MG PO (19:36)
[2020-08-01 19:45] LABS: Troponin I < 0.012 ng/mL (0.000-0.034)
[2020-08-01 22:31] LABS: Troponin I < 0.012 ng/mL (0.000-0.034)
[2020-08-02] VITALS (16 sets, daily range): BP systolic 93–112; BP diastolic 42–50; PULSE 83–95; RESP 16–20; TEMP 36.4–36.9; O2SAT 92–97
[2020-08-02 00:02] LABS: Total Triiodothyronine (T3) 0.94 NG/ML (0.97-1.69)
[2020-08-02 01:39] LABS: Troponin I < 0.012 ng/mL (0.000-0.034)
[2020-08-02] MEDS: LEVOTHYROXINE SODIUM 150 MCG TABLET PO (05:36)
[2020-08-02] MEDS: IPRATROPIUM BR 0.02% INH SOLN 0.5 MG/2.5 ML VIAL INHALATION ×3 (07:21→20:24)
[2020-08-02] MEDS: ALBUTEROL SULFATE NEB 2.5 MG/0.5 ML INH INHALATION ×3 (07:21→20:24)
[2020-08-02] MEDS: LACTATED RINGERS 1,000 ML 75 ML IV CONT (07:30)
[2020-08-02 07:34] LABS: Basophils Percent Auto 0.2 % (0.2-1.2); Eosinophils Percent Auto 0.4 % (0-4.4); Hematocrit 34.2 % (37.0-47.0); Immature Granulocyte Absolute 0.03 K/mm3 (0.00-0.031); Immature Granulocyte Percent A 0.3 % (0-0.5); Lymphocytes Absolute Auto 0.94 K/mm3 (0.9-3.2); Lymphocytes Percent Auto 9.9 % (18.3-44.2); Mean Corpuscular HGB Conc 32.2 g/dl (32-36); Mean Corpuscular Hemoglobin 28.2 pg (26-34); Mean Corpuscular Volume 87.7 fl (80-100); Mean Platelet Volume 8.7 fl (7.4-10.4); Monocytes Absolute Auto 0.7 K/mm3 (0.1-0.6); Monocytes Percent Auto 6.9 % (2.6-8.5); Neutrophils Absolute Auto 7.9 K/mm3 (1.3-6.7); Neutrophils Percent Auto 82.3 % (45.5-73.1); Platelet Count Result 241 k/mm3 (150-375); Red Cell Distribution Width 13.3 % (11.5-14.5); White Blood Count 9.5 K/mm3 (4.5-10.0)
[2020-08-02 07:49] LABS: Lactic Acid Reflex 0.9 mmol/L (0.7-2.1)
[2020-08-02 07:51] LABS: Albumin Level 3.8 g/dL (3.5-5.1); Alkaline Phosphatase 48 U/L (38-126); Anion Gap 6 mmol/L (8-16); Aspartate Amino Transferase 25 U/L (14-36); Bilirubin,Total 0.5 mg/dL (0.2-1.3); Blood Urea Nitrogen 20 mg/dL (7-17); Calcium 8.7 mg/dL (8.4-10.2); Carbon Dioxide 31 mmol/L (22-30); Chloride 98 mmol/L (98-107); Estimated CRCL calculation 35 ml/min; Estimated Glomerular Filt Rate 53; Glucose 89 mg/dL (65-105); Potassium 3.7 mmol/L (3.4-5.0); Sodium 135 mmol/L (137-145)
[2020-08-02 08:04] LABS: Alanine Aminotransferase < 4 U/L (4-35)
[2020-08-02] MEDS: METOCLOPRAMIDE HCL 10 MG TABLET PO ×2 (08:31→17:22)
[2020-08-02] MEDS: ASPIRIN 81 MG ENTERIC TABLET PO (08:32)
[2020-08-02] MEDS: ATORVASTATIN 40 MG TABLET PO (08:32)
[2020-08-02] MEDS: CARBIDOPA/LEVODOPA 25/100 MG TABLET 1 TABLET PO ×3 (08:32→17:22)
[2020-08-02] MEDS: ENOXAPARIN 40 MG/0.4 ML SYRINGE SUB-Q (08:32)
[2020-08-02] MEDS: LIDOCAINE 5% PATCH 1 PATCH TRANSDERM (08:33)
[2020-08-02] MEDS: GABAPENTIN 100 MG CAPSULE PO ×3 (08:33→17:22)
--- NOTE | 2020-08-02 12:37 | PM.IMPN ---
Progress Note: A&P Assessment and Plan (1) Sepsis: Code(s): A41.9 - Sepsis, unspecified organism Status: Acute Assessment and Plan: Patient met sepsis criteria on 08/01/20 patient developed tachycardia, low-grade fever, elevation of white blood cell count in the setting of pneumonia. Patient was started on IV antibiotics, IV blood cultures and sputum cultures were obtained Vitals are much improved today Continue monitoring vitals, labs, and continue treatment for infection. (2) Pneumonia: Code(s): J18.9 - Pneumonia, unspecified organism Status: Acute Assessment and Plan: Could be community-acquired versus aspiration pneumonia. Patient was found to have pneumonia after being septic. CTA of her chest showed no pulmonary embolism, Elevated left hemidiaphragm, probably paralysis with adjacent chronic atelectasis but also superimposed left lower lobe bacterial pneumonia suspected. She was started on IV Rocephin and doxycycline for possible community-acquired pneumonia Speech therapy evaluated the patient at bedside and recommended mildly thickened liquid diet and soft in bite size due to her history of radiation for her laryngeal cancer Patient is due doing well at this time, resting comfortably in 94% on room air. Normal lactic acid. Afebrile, non tachycardic, normal respiratory rate. Will continue monitoring at this time. (3) Tachycardia: Code(s): R00.0 - Tachycardia, unspecified Status: Acute Assessment and Plan: CTA was negative for DVT. Found to have pneumonia which is being treated for. Tachycardia has resolved. (4) Cervical myelopathy: Code(s): G95.9 - Disease of spinal cord, unspecified Status: Acute Assessment and Plan: Patient was reporting neck pain which brought her into the emergency room. She was found to be leaning back in her wheelchair to serve her her neck when her son found her. She has never had neck issues in the past, per son. Patient also had weakness trying to get up out of her wheelchair. Most likely due to muscle strain, no recent falls or injury. 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 Moderate cervical spondylosis. Talked with the neurologist who recommend her following up with a neurosurgeon for further evaluation Continue monitoring with symptomatic care. (5) Generalized weakness: Code(s): R53.1 - Weakness Status: Acute Assessment and Plan: Could be chronic debilitation versus infection. Found to have pneumonia and on IV antibiotics at this time. The patient is nonambulatory, wheelchair bound and lives alone with help from her son most mornings and evenings PT OT have been ordered for further evaluation. (6) Facial droop: Code(s): R29.810 - Facial weakness Status: Acute Assessment and Plan: Patient was found to have a facial droop which she states is chronic from her laryngeal surgery. CT head and neck with contrast showed no acute stroke like findings. MRI brain No new or old CVA. *Normal pressure hydrocephalis found on MRI from 2014. Neurology has been consulted and recommends following up with a neurosurgeon. Patient denies any new stroke-like symptoms. Continue PT/OT Continue monitoring. (7) Cerebral ventriculomegaly: Code(s): G93.89 - Other specified disorders of brain Status: Acute Assessment and Plan: Appears to be chronic symmetric venticulomegaly. MRI Brain/Brainstem w/o on 01/22/15 showed mild chronic ventricular prominence disproportina
--- NOTE | 2020-08-02 12:43 | PCSTNOTE ---
Please refer to the Bedside Swallow Evaluation in the EMR. Please note, silent aspiration cannot be ruled out at bedside.
--- NOTE | 2020-08-02 15:00 | PHAR ---
ZOSYN DOSE REVIEWED WITHOUT ADJUSTMENT FOR INDICATION OF PNEUMONIA & CRCL 35 ML/MIN
[2020-08-02 19:24] LABS: SARS-CoV-2 RNA PCR Negative
[2020-08-03] VITALS (18 sets, daily range): BP systolic 97–141; BP diastolic 44–60; PULSE 83–101; RESP 18–22; TEMP 36.3–37.4; O2SAT 91–98
[2020-08-03] MEDS: ALBUTEROL SULFATE NEB 2.5 MG/0.5 ML INH INHALATION ×4 (01:34→20:34)
[2020-08-03] MEDS: IPRATROPIUM BR 0.02% INH SOLN 0.5 MG/2.5 ML VIAL INHALATION ×4 (01:34→20:34)
[2020-08-03] MEDS: CYCLOBENZAPRINE HCL 10 MG TABLET PO (03:56)
[2020-08-03] MEDS: LEVOTHYROXINE SODIUM 150 MCG TABLET PO (06:11)
[2020-08-03 06:14] LABS: Basophils Percent Auto 0.4 % (0.2-1.2); Eosinophils Percent Auto 0.7 % (0-4.4); Hematocrit 32.4 % (37.0-47.0); Hemoglobin 10.1 g/dL (12.0-15.0); Immature Granulocyte Absolute 0.03 K/mm3 (0.00-0.031); Immature Granulocyte Percent A 0.5 % (0-0.5); Lymphocytes Absolute Auto 0.86 K/mm3 (0.9-3.2); Lymphocytes Percent Auto 15.3 % (18.3-44.2); Mean Corpuscular HGB Conc 31.2 g/dl (32-36); Mean Corpuscular Hemoglobin 27.9 pg (26-34); Mean Corpuscular Volume 89.5 fl (80-100); Monocytes Absolute Auto 0.4 K/mm3 (0.1-0.6); Monocytes Percent Auto 7.3 % (2.6-8.5); Neutrophils Absolute Auto 4.3 K/mm3 (1.3-6.7); Neutrophils Percent Auto 75.8 % (45.5-73.1); Platelet Count Result 202 k/mm3 (150-375); Red Blood Count 3.62 M/mm3 (4.2-5.4); Red Cell Distribution Width 13.2 % (11.5-14.5); White Blood Count 5.6 K/mm3 (4.5-10.0)
[2020-08-03 06:23] LABS: Anion Gap 1 mmol/L (8-16); Blood Urea Nitrogen 20 mg/dL (7-17); Calcium 8.7 mg/dL (8.4-10.2); Carbon Dioxide 34 mmol/L (22-30); Chloride 102 mmol/L (98-107); Estimated CRCL calculation 32 ml/min; Estimated Glomerular Filt Rate 48; Glucose 79 mg/dL (65-105); Sodium 137 mmol/L (137-145)
[2020-08-03] MEDS: ATORVASTATIN 40 MG TABLET PO (08:08)
[2020-08-03] MEDS: METOCLOPRAMIDE HCL 10 MG TABLET PO ×2 (08:08→17:51)
[2020-08-03] MEDS: LIDOCAINE 5% PATCH 1 PATCH TRANSDERM (08:08)
[2020-08-03] MEDS: CARBIDOPA/LEVODOPA 25/100 MG TABLET 1 TABLET PO ×3 (08:08→17:50)
[2020-08-03] MEDS: ASPIRIN 81 MG ENTERIC TABLET PO (08:08)
[2020-08-03] MEDS: ENOXAPARIN 40 MG/0.4 ML SYRINGE SUB-Q (08:09)
[2020-08-03] MEDS: GABAPENTIN 100 MG CAPSULE PO ×3 (08:09→17:51)
[2020-08-03] MEDS: FUROSEMIDE 20 MG TABLET PO ×2 (09:36→17:50)
--- NOTE | 2020-08-03 09:38 | P.PNIM_ITS ---
Progress Note: A&P Assessment and Plan (1) Sepsis: Code(s): A41.9 - Sepsis, unspecified organism Status: Acute Assessment and Plan: Patient met sepsis criteria on 08/01/20 patient developed tachycardia, low-grade fever, elevation of white blood cell count in the setting of pneumonia. * Patient was started on IV antibiotics, IV blood cultures and sputum cultures were obtained * Vitals are much improved today Continue monitoring vitals, labs, and continue treatment for infection. (2) Pneumonia: Code(s): J18.9 - Pneumonia, unspecified organism Status: Acute Assessment and Plan: Could be community-acquired versus aspiration pneumonia. Patient was found to have pneumonia after being septic. CTA of her chest showed no pulmonary embolism, Elevated left hemidiaphragm, probably paralysis with adjacent chronic atelectasis but also superimposed left lower lobe bacterial pneumonia suspected. * She was started on IV Rocephin and doxycycline for possible community-acquired pneumonia * Speech therapy evaluated the patient at bedside and recommended mildly thickened liquid diet and soft in bite size due to her history of radiation for her laryngeal cancer * Patient is due doing well at this time, resting comfortably in 94% on room air. Normal lactic acid. Afebrile, non tachycardic, normal respiratory rate. Will continue monitoring at this time. (3) Tachycardia: Code(s): R00.0 - Tachycardia, unspecified Status: Acute Assessment and Plan: CTA was negative for DVT. Found to have pneumonia which is being treated for. Tachycardia has resolved. (4) Cervical myelopathy: Code(s): G95.9 - Disease of spinal cord, unspecified Status: Acute Assessment and Plan: Patient was reporting neck pain which brought her into the emergency room. She was found to be leaning back in her wheelchair to serve her her neck when her son found her. She has never had neck issues in the past, per son. Patient also had weakness trying to get up out of her wheelchair. Most likely due to muscle strain, no recent falls or injury. 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 Moderate cervical spondylosis. * Talked with the neurologist who recommend her following up with a neurosurgeon for further evaluation Continue monitoring with symptomatic care. (5) Generalized weakness: Code(s): R53.1 - Weakness Status: Acute Assessment and Plan: Could be chronic debilitation versus infection. * Found to have pneumonia and on IV antibiotics at this time. * The patient is nonambulatory, wheelchair bound and lives alone with help from her son most mornings and evenings PT OT have been ordered for further evaluation. (6) Facial droop: Code(s): R29.810 - Facial weakness Status: Acute Assessment and Plan: Patient was found to have a facial droop which she states is chronic from her laryngeal surgery. CT head and neck with contrast showed no acute stroke like findings. * MRI brain No new or old CVA. * *Normal pressure hydrocephalis found on MRI from 2014. * Neurology has been consulted and recommends following up with a neurosurgeon. * Patient denies any new stroke-like symptoms. * Con
--- NOTE | 2020-08-03 13:48 | PCSTNOTE ---
Patient was seen for a Bedside Swallow Evaluation and one follow-up treatment. Patient was instructed in voice/breathing and speech, swallowing compensatory techniques but voiced little interest in learning something new today and no interest in continuing ST. Thanked me for the package of [place] [employer] trial packets. Thanked me also for coming in today.
--- NOTE | 2020-08-03 15:04 | WPDNEUROPN ---
Progress Note: A&P Additional Plan considering the multiple problem it was advised that she will be referred to neurosurgical service if they want to pursue further otherwise is not necessary to draw the spinal fluid here and refer the patient to neurosurgeons later on once she gets discharged from here with the family wants to we will arrange the transfer or referral to the neurosurgical service at [facility] Objective Data Vital Signs Vital Signs: Vital Signs - 24 hr 08/02/20 16:00 08/02/20 20:00 08/02/20 20:28 Temperature 36.9 C 36.4 C Pulse Rate 94 95 90 Respiratory Rate 16 18 20 Blood Pressure 108/50 L 107/47 L Pulse Oximetry 93 94 08/02/20 20:38 08/02/20 20:45 08/02/20 21:40 Temperature Pulse Rate 95 90 Respiratory Rate 20 20 Blood Pressure Pulse Oximetry 97 97 08/02/20 23:57 08/03/20 01:36 08/03/20 01:46 Temperature 36.4 C Pulse Rate 93 84 89 Respiratory Rate 18 18 18 Blood Pressure 105/47 L Pulse Oximetry 93 98 08/03/20 04:00 08/03/20 08:00 08/03/20 08:42 Temperature 36.7 C 36.4 C Pulse Rate 88 88 83 Respiratory Rate 18 22 H 18 Blood Pressure 99/44 L 119/48 L Pulse Oximetry 93 92 08/03/20 08:44 08/03/20 08:53 08/03/20 12:00 Temperature 37.4 C Pulse Rate 90 101 H Respiratory Rate 18 18 Blood Pressure 141/60 H Pulse Oximetry 91 93 08/03/20 14:06 08/03/20 14:19 08/03/20 14:44 Temperature 36.6 C Pulse Rate 85 88 Respiratory Rate 18 18 Blood Pressure Pulse Oximetry Intake/Output Intake/Output: Intake & Output 07/31/20 08/01/20 08/02/20 08/03/20 23:59 23:59 23:59 23:59 Intake Total 1550 1340 1940 1790 Output Total 250 Balance 1300 1340 1940 1790 Meds/Results Medications: Active Medications Generic Name Dose Route Start Last Admin Trade Name Freq PRN Reason Stop Dose Admin Acetaminophen 650 mg 08/01/20 19:02 08/01/20 19:36 Acetaminophen 325 Mg Tablet PO 650 mg Q4H PRN Administration Mild Pain (1-3) or Fever Albuterol 2.5 mg 08/02/20 08:00 08/03/20 14:04 Albuterol Sulfate Neb 2.5 Mg/0.5 Ml Inh INHALATION 2.5 mg Q6HRT ADRIÁN Administration Aspirin 81 mg 07/31/20 11:30 08/03/20 08:08 Aspirin 81 Mg Enteric Tablet PO 81 mg QAM ADRIÁN Administration Atorvastatin Calcium 40 mg 08/01/20 09:00 08/03/20 08:08 Atorvastatin 40 Mg Tablet PO 40 mg DAILY ADRIÁN Administration Carbidopa/Levodopa 1 tablet 07/31/20 08:00 08/03/20 12:43 Carbidopa/Levodopa 25/100 Mg Tablet PO 1 tablet TIDWM ADRIÁN Administration Cyclobenzaprine HCl 10 mg 07/31/20 04:19 08/03/20 03:56 Cyclobenzaprine Hcl 10 Mg Tablet PO 10 mg Q8H PRN Administration Muscle Spasm Enoxaparin Sodium 40 mg 08/01/20 09:00 08/03/20 08:09 Enoxaparin 40 Mg/0.4 Ml Syringe SUB-Q 40 mg DAILY ADRIÁN Administration Furosemide 20 mg 07/31/20 09:00 08/03/20 09:36 Furosemide 20 Mg Tablet PO 20 mg BID ADRIÁN Administration Gabapentin 100 mg 08/01/20 17:00 08/03/20 12:43 Gabapentin 100 Mg Capsule PO 100 mg TID ADRIÁN Administration Doxycycline Hyclate 100 mg in 100 mls @ 100 mls/hr 08/01/20 18:00 08/03/20 07:13 Vibramycin 100 Mg/D5w 100 Ml IVPB Infused Q12H ADRIÁN Infusion Piperacillin/Tazobactam/Dextrose 3.375 gm in 50 mls @ 100 mls/hr 08/02/20 15:00 08/03/20 14:42 Zosyn 3.375 Gm/D5w 50ml Pm IVPB 100 mls/hr Q6H ADRIÁN Administration Ipratropium [place] 0.5 mg 08/02/20 08:00 08/03/20 14:04 Ipratropium Br 0.02% Inh Soln 0.5 Mg/2.5 Ml Vial INHALATION 0.5 mg Q6HRT ADRIÁN Administration Levothyroxine Sodium 150 mcg 07/31/20 06:30 08/03/20 06:11 Levothyroxine Sodium 150 Mcg Tablet PO 150 mcg DAILY@0630 ADRIÁN Administration Lidocaine 1 patch 07/31/20 09:00 08/03/20 08:08 Lidocaine 5% Patch TRANSDERM 1 patch DAILY ADRIÁN Administration Metoclopramide HCl 10 mg 07/31/20 08:00 08/03/20 08:08 Metoclopramide Hcl 10 Mg Tablet PO 10 mg BIDWM ADRIÁN Administration Metopro
[2020-08-04] VITALS (7 sets, daily range): BP systolic 110–112; BP diastolic 53–62; PULSE 77–88; RESP 16–20; TEMP 36.4–36.6; O2SAT 94–98
[2020-08-04] MEDS: ALBUTEROL SULFATE NEB 2.5 MG/0.5 ML INH INHALATION ×2 (02:52→09:17)
[2020-08-04] MEDS: IPRATROPIUM BR 0.02% INH SOLN 0.5 MG/2.5 ML VIAL INHALATION ×2 (02:52→09:17)
[2020-08-04] MEDS: LEVOTHYROXINE SODIUM 150 MCG TABLET PO (05:03)
[2020-08-04 06:28] LABS: Basophils Percent Auto 0.4 % (0.2-1.2); Eosinophils Absolute Auto 0.1 K/mm3 (0-0.3); Eosinophils Percent Auto 1.7 % (0-4.4); Hematocrit 31.6 % (37.0-47.0); Immature Granulocyte Absolute 0.03 K/mm3 (0.00-0.031); Immature Granulocyte Percent A 0.7 % (0-0.5); Lymphocytes Absolute Auto 0.77 K/mm3 (0.9-3.2); Lymphocytes Percent Auto 16.7 % (18.3-44.2); Mean Corpuscular HGB Conc 31.6 g/dl (32-36); Mean Corpuscular Hemoglobin 27.5 pg (26-34); Mean Corpuscular Volume 86.8 fl (80-100); Mean Platelet Volume 8.9 fl (7.4-10.4); Monocytes Absolute Auto 0.3 K/mm3 (0.1-0.6); Monocytes Percent Auto 7.4 % (2.6-8.5); Neutrophils Absolute Auto 3.4 K/mm3 (1.3-6.7); Neutrophils Percent Auto 73.1 % (45.5-73.1); Platelet Count Result 230 k/mm3 (150-375); Red Blood Count 3.64 M/mm3 (4.2-5.4); Red Cell Distribution Width 13.2 % (11.5-14.5); White Blood Count 4.6 K/mm3 (4.5-10.0)
[2020-08-04 06:39] LABS: Anion Gap 4 mmol/L (8-16); Blood Urea Nitrogen 18 mg/dL (7-17); Calcium 8.7 mg/dL (8.4-10.2); Carbon Dioxide 30 mmol/L (22-30); Chloride 103 mmol/L (98-107); Estimated CRCL calculation 35 ml/min; Estimated Glomerular Filt Rate 53; Glucose 84 mg/dL (65-105); Potassium 3.7 mmol/L (3.4-5.0); Sodium 137 mmol/L (137-145)
[2020-08-04] MEDS: ASPIRIN 81 MG ENTERIC TABLET PO (08:36)
[2020-08-04] MEDS: GABAPENTIN 100 MG CAPSULE PO ×2 (08:36→12:07)
[2020-08-04] MEDS: FUROSEMIDE 20 MG TABLET PO (08:36)
[2020-08-04] MEDS: CARBIDOPA/LEVODOPA 25/100 MG TABLET 1 TABLET PO ×2 (08:36→12:07)
[2020-08-04] MEDS: ENOXAPARIN 40 MG/0.4 ML SYRINGE SUB-Q (08:37)
[2020-08-04] MEDS: LIDOCAINE 5% PATCH 1 PATCH TRANSDERM (08:37)
[2020-08-04] MEDS: ATORVASTATIN 40 MG TABLET PO (08:37)
[2020-08-04] MEDS: METOCLOPRAMIDE HCL 10 MG TABLET PO (08:37)
--- NOTE | 2020-08-04 10:45 | PM.DS ---
DS: Admitting Diagnosis Admitting Diagnosis Admitting Diagnosis: Neck pain DS: Discharge Diagnosis Discharge Diagnosis (1) Sepsis: Code(s): A41.9 - Sepsis, unspecified organism Status: Acute Assessment and Plan: Normal vitals. Blood cultures negative to date. (2) Pneumonia: Code(s): J18.9 - Pneumonia, unspecified organism Status: Acute Assessment and Plan: Aspiration PNA. Treated with ABx (3) Tachycardia: Code(s): R00.0 - Tachycardia, unspecified Status: Acute Assessment and Plan: CTA was negative for DVT. Found to have pneumonia which is being treated for. Tachycardia has resolved. 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 No worsening stroke-like symptoms. (7) Cerebral ventriculomegaly: Code(s): G93.89 - Other specified disorders of brain Status: Acute Assessment and Plan: (8) Carotid artery stenosis: Qualifiers: Laterality: bilateral Qualified Code(s): I65.23 - Occlusion and stenosis of bilateral carotid arteries Code(s): I65.29 - Occlusion and stenosis of unspecified carotid artery Status: Acute Assessment and Plan: Will start aspirin since she has not been on this. (9) Dependent edema: Code(s): R60.9 - Edema, unspecified Status: Acute Assessment and Plan: Continue home medications (10) Chronic obstructive pulmonary disease, unspecified: Code(s): J44.9 - Chronic obstructive pulmonary disease, unspecified Status: Acute Assessment and Plan: At her baseline continue home medications. (11) Hypothyroidism (acquired): Code(s): E03.9 - Hypothyroidism, unspecified Status: Acute Assessment and Plan: Continue levothyroxine. (12) Parkinson's disease: Code(s): G20 - Parkinson's disease Status: Acute Assessment and Plan: Continue Sinemet. (13) Personal history of malignant neoplasm of larynx: Code(s): Z85.21 - Personal history of malignant neoplasm of larynx Status: Acute Assessment and Plan: s/p laryngectomy and tracheostmoy status. on TAG. neb as ordered. Follow up with Specialist at [place]. (14) Tracheostomy status: Code(s): Z93.0 - Tracheostomy status Status: Acute Assessment and Plan: s/p laryngectomy and tracheostmoy status. on TAG. neb as ordered. Follow up with Specialist at [place]. (15) Abnormal CT scan, chest: Code(s): R93.89 - Abnormal findings on diagnostic imaging of other specified body structures Status: Acute Assessment and Plan: Elevated left hemidiaphragm, probably paralysis with adjacent chronic atelectasis but also superimposed left lower lobe bacterial pneumonia suspected. Underlying cancer not excludable. This will need to be followed up with a inside sales advisor for further evaluation and monitoring She will need a follow-u
[2020-08-05 22:40] LABS: Pneumococcal Antigen Urine Not Detected (Not Detected)
[2020-08-07 10:12] LABS: Legionella pneumophila Ag Ur Not Detected (Not Detected)
--- NOTE | 2020-08-10 12:48 | PC.NURSE ---
Blood cx are negative.
== END 2020-08-04 13:10 | disposition home or self-care (01) | DRG 551 ==
LOC: ANHED 18:39 → ANH3MED 19:25
PROVIDERS: Internal Medicine; Physician Assistant; Admitting Provider Hospitalist; Emergency Provider Emergency Medicine; PCP Internal Medicine; Visit Provider Internal Medicine
DX: M54.2 Cervicalgia (principal); J69.0 Pneumonitis due to inhalation of food and vomit; A41.9 Sepsis, unspecified organism; G95.9 Disease of spinal cord, unspecified; J44.9 Chronic obstructive pulmonary disease, unspecified; Z20.822 Contact with and (suspected) exposure to COVID-19; I65.23 Occlusion and stenosis of bilateral carotid arteries; R29.810 Facial weakness; R53.1 Weakness; G93.89 Other specified disorders of brain; R60.9 Edema, unspecified; E03.9 Hypothyroidism, unspecified; G20 Parkinson's disease; I77.810 Thoracic aortic ectasia; R93.89 Abnormal findings on diagnostic imaging of other specified body structures; I10 Essential (primary) hypertension; Z79.899 Other long term (current) drug therapy; Z85.21 Personal history of malignant neoplasm of larynx; Z87.891 Personal history of nicotine dependence; Z93.0 Tracheostomy status; Z99.3 Dependence on wheelchair
CPT/HCPCS: 36415; 70496; 70498; 70551; 71046; 71275; 72141; 80048; 80053; 80061; 81001; 82948; 83605; 84439; 84443; 84480; 84484; 85025; 85610; 85730; 87040; 87449; 87899; 92526; 92610; 93005; 93970; 94640; 96361; 96365; 96366; 96367; 96372; 96375; 97110; 97161; 97165; 97530; 97535; 99285; A9270; C9803; G0378; J0696; J1650; J2543; J7120; Q9967; U0003; U0005

== ENCOUNTER 2021-02-10 14:10 | Observation (INO) | payer OTHER, SELFPAY ==
--- NOTE | ~2021-02-10 | CT_ITS ---
EXAMINATION: CT abdomen pelvis w con DATE: 02/10/2021 17:51 INDICATION: Abdominal pain, nausea, vomiting and diarrhea. TECHNIQUE: Computed tomography (CT) of the abdomen and pelvis was performed with 100 mL Omnipaque-350 intravenous contrast. Automated exposure control and iterative reconstruction technique were employe d. The dose-length product was 266.87 mGy-cm. COMPARISON: None FINDINGS: Small calcified nodule in the right lower lobe consistent with old granulomatous disease. Compressive atelectasis at the left lung base along the elevated left hemidiaphragm. Heart is normal in size and shifted towards the right due to the mass effect from the elevated diaphragm. No pericardial or pleu ral effusion. Small amount of atherosclerotic coronary artery calcification. Ectatic ascending thorac ic aorta measuring up to 3.8 cm in maximal diameter. Liver, gallbladder, spleen, pancreas, bilateral adrenal glands and kidneys are normal. Multiple gas-f illed but not frankly dilated loops of small bowel throughout the abdomen without discrete transition point to suggest obstruction. There is moderate amount of stool in the proximal colon and small amou nts in the sigmoid colon with large amount of gas throughout the intervening colon. There is a distal ileal small bowel anastomosis in the central pelvis. Bladder is distended but otherwise unremarkable . The uterus is not identified and has likely been surgically resected. No free intraperitoneal gas o r fluid. No pathologically enlarged abdominal or pelvic lymphadenopathy. There is calcified atheroscl erosis of the aorta and many of the other arteries. Mild lumbar dextroscoliosis with severe spondylos is. IMPRESSION: 1. Large amount of gas scattered throughout the large and small bowel without rodrigo bowel dilation or transition point to suggest obstruction. 2. Chronic elevation of the left hemidiaphragm with left basilar atelectasis. Reviewed, dictated and finalized at location A. SONIC ENGINEER IMPRESSION: 1. Large amount of gas scattered throughout the large and small bowel without f rank bowel dilation or transition point to suggest obstruction. 2. Chronic elevation of the left hemidiaphragm with left basilar atelectasis.
--- NOTE | ~2021-02-10 | XR_ITS ---
EXAMINATION: XR abdomen/kub 1V DATE: 02/11/2021 14:30 INDICATION: Constipation. TECHNIQUE: A supine view of the abdomen on 2 radiographs was obtained. COMPARISON: CT abdomen and pelvis 02/10/2021 FINDINGS: There is gaseous distention of small and large bowel. There is a small volume of stool in t he colon. There is a surgical clip in right abdomen. There are staple lines in left abdomen. IMPRESSION: 1. Persisting gaseous distention of small and large bowel, consistent with adynamic ileus. Reviewed, dictated and finalized at location B. SETTER IMPRESSION: 1. Persisting gaseous distention of small and large bowel, consistent with adyn amic ileus.
--- NOTE | ~2021-02-10 | XR_ITS ---
EXAMINATION: XR abdomen/kub 1V DATE: 02/13/2021 12:28 INDICATION: Constipation. TECHNIQUE: A supine view of the abdomen on 2 radiographs was obtained. COMPARISON: Abdomen radiographs 02/11/2021, CT abdomen and pelvis 02/10/2021 FINDINGS: Again seen is marked elevation of left hemidiaphragm. There is gaseous distention of small bowel. There is a moderate volume of stool in the colon. The colon is mildly distended. There is a andrea wel staple line in left abdomen. IMPRESSION: 1. Persistent distention of the small and large bowel, consistent with adynamic ileus. Reviewed, dictated and finalized at location B. DRIVER
--- NOTE | ~2021-02-10 | XR_ITS ---
EXAMINATION: XR chest 2V DATE: 02/10/2021 17:16 INDICATION: COPD presenting with nausea, vomiting and diarrhea and lower limb edema. TECHNIQUE: frontal and lateral views of the chest were obtained. COMPARISON: Chest radiograph dated 07/21/[address] dated 08/01/2020 FINDINGS: Again seen are multiple loops of gas-filled bowel underlying the mildly elevated left hemidiaphragm. No focal airspace opacities, pulmonary edema, pleural effusion or pneumothorax. Cardiac silhouette is normal in size and shifted slightly towards the right due to the mass effect from the elevated diaph ragm. Old healed fracture deformity at the proximal right humerus. Multiple surgical clips at the bas e of the neck. Atherosclerotic aorta. IMPRESSION: 1. Chronic elevated left hemidiaphragm. No acute cardiopulmonary disease. Reviewed, dictated and finalized at location A. [employer]
[2021-02-10 14:11] VITALS: BP 135/65; PULSE 84; RESP 16; TEMP 36.2; O2SAT 98
--- NOTE | 2021-02-10 16:43 | ECG_ITS ---
Measurements Intervals [place] Rate: 86 P: 32 NV: 164 QRS: -3 QRSD: 90 T: 36 QT: 363 QTc: 436 Interpretive Statements SINUS RHYTHM POSSIBLE LEFT ATRIAL ENLARGEMENT EARLY PRECORDIAL R/S TRANSITION ST-T WAVE ABNORMALITY IN ANTERIOR LEADS- CONSIDER ISCHEMIA BASELINE ARTIFACT- I, II, III, AVR, AVL, AVF, V1-V6 ABNORMAL ECG Electronically Signed On 02-10-2021 20:22:39 REIMBURSEMENT AUDITOR by Ananth Madsen D.O.
--- NOTE | 2021-02-10 16:46 | ED.NAVMDI ---
HPI - Nausea/Vomiting/Diarrhea General Chief complaint: Nausea/Vomiting/Diarrhea Stated complaint: N/V/D Time Seen by Provider: 02/10/21 16:29 Source: patient Mode of arrival: EMS Limitations: no limitations History of Present Illness HPI Narrative: This is a 80 year old female that presents to the ER for abdominal pain. Reports it has been ongoing for the last week. Associated with diarrhea. Also reports some nausea. Reports she is feeling week and does not feel safe at home. Reports some dysuria. Denies fever, chest pain, shortness of breath, vomiting, or hematochezia. Related Data Allergies Allergy/AdvReac Type Severity Reaction Status Date / Time No Known Allergies Allergy Verified 12/31/19 11:05 Review of Systems Review of Systems: CONSTITUTIONAL: Denies fever CARDIOVASCULAR: Reports edema. Denies chest pain RESPIRATORY: Denies dyspnea. GASTROINTESTINAL: Reports abdominal pain, nausea, and diarrhea. Denies vomiting GENITOURINARY: Reports dysuria. Denies hematuria. MUSCULOSKELETAL: Denies back pain, joint pain, or myalgia. NEUROLOGIC: Reports generalized weakness. All systems reviewed & are unremarkable except as noted in HPI and below PMFSH Past Medical History Medical History (Updated 02/10/21 @ 21:03 by Brenda Munoz PA-C) Chronic obstructive pulmonary disease, unspecified Hypothyroidism (acquired) Family History Family History Father Family history of heart disease in male family member before age 55 Mother Family history of heart disease in male family member before age 55 Other Family history of malignant neoplasm Family history of malignant neoplasm of breast in first degree relative Social History Social History Smoking status: Former smoker Second hand tobacco smoke exposure: No Smoking end date: 03/23/02 Alcohol intake: never Substance use: never Spiritual care concerns: No Exam Narrative: GENERAL: Elderly, well-nourished, and in no acute distress. HEAD: Normocephalic, atraumatic. EYES: PERRLA and EOMI. ENT: Nares clear, no rhinorrhea or epistaxis. Mucous membranes moist. Oropharynx without tonsillar hypertrophy exudate or other lesions. Bilateral TMs pearly [place] non-bulging NECK: Supple. No adenopathy or masses. CHEST: Clear to auscultation. No respiratory distress. No wheezes rales or rhonchi HEART: Regular rate and rhythm. No murmur heard. Normal peripheral pulses. ABDOMEN: Soft, nontender, nondistended, normal active bowel sounds. EXTREMITIES: Normal range of motion. 1+ pitting edema to the bilateral lower extremities SKIN: Warm, dry, no rash. NEURO: No focal deficits. Alert and oriented x3. PSYCH: Normal mood and affect Course Consultations Consultation #1: Spoke with hospitalist about patient and workup who accepts admission Date: 02/10/21 Vital Signs Vital signs: Vital Signs Temperature 97.1 F L 02/10/21 14:11 Pulse Rate 84 02/10/21 14:11 Respiratory Rate 16 02/10/21 14:11 Blood Pressure 135/65 02/10/21 14:11 Pulse Oximetry 98 02/10/21 14:11 Temperature 97.1 F L 02/10/21 14:11 Pulse Rate 77 02/10/21 19:47 Respiratory Rate 16 02/10/21 19:47 Blood Pressure 146/75 H 02/10/21 19:47 Pulse Oximetry 99 02/10/21 19:47 MDM - Nausea/Vomiting/Diarrhea MDM Narrative Medical decision making narrative: Patient presents to the emergency department for generalized weakness. Noting abdominal discomfort and diarrhea over the last week. She is afebrile and nontoxic-appearing. Her vitals are stable. CBC and metabolic panel without concerning findings. UA is nitrate positive. EKG with nonspecific ST changes. Patient denies any chest pain. Chest x-ray shows chronic elevated left hemidiaphragm. No acute cardiopulmonary disease. Patient noted to have urinary retention. Vargas catheter placed. Dose of Rocephin given. CT scan of
[2021-02-10 16:59] LABS: Basophils Percent Auto 0.5 % (0.2-1.2); Eosinophils Percent Auto 0.3 % (0-4.4); Hematocrit 40.2 % (37.0-47.0); Hemoglobin 12.8 g/dL (12.0-15.0); Immature Granulocyte Absolute 0.01 K/mm3 (0.00-0.031); Immature Granulocyte Percent A 0.2 % (0-0.5); Lymphocytes Absolute Auto 1.21 K/mm3 (0.9-3.2); Lymphocytes Percent Auto 21.1 % (18.3-44.2); Mean Corpuscular HGB Conc 31.8 g/dl (32-36); Mean Platelet Volume 8.6 fl (7.4-10.4); Monocytes Absolute Auto 0.3 K/mm3 (0.1-0.6); Monocytes Percent Auto 5.4 % (2.6-8.5); Neutrophils Absolute Auto 4.2 K/mm3 (1.3-6.7); Neutrophils Percent Auto 72.5 % (45.5-73.1); Platelet Count Result 256 k/mm3 (150-375); Red Blood Count 4.57 M/mm3 (4.2-5.4); Red Cell Distribution Width 13.4 % (11.5-14.5); White Blood Count 5.7 K/mm3 (4.5-10.0)
[2021-02-10 17:09] LABS: Alanine Aminotransferase 8 U/L (4-35); Albumin Level 4.7 g/dL (3.5-5.1); Alkaline Phosphatase 57 U/L (38-126); Anion Gap 8 mmol/L (8-16); Aspartate Amino Transferase 21 U/L (14-36); Bilirubin,Total 0.7 mg/dL (0.2-1.3); Blood Urea Nitrogen 19 mg/dL (7-17); Calcium 9.7 mg/dL (8.4-10.2); Carbon Dioxide 27 mmol/L (22-30); Chloride 102 mmol/L (98-107); Estimated CRCL calculation 43 ml/min; Estimated Glomerular Filt Rate > 60; Glucose 89 mg/dL (65-110); Lipase 126 U/L (23-300); Sodium 137 mmol/L (137-145)
[2021-02-10 17:17] LABS: NT Pro B Type Natriuretic Pept 801 pg/mL (5-100)
--- NOTE | 2021-02-10 19:19 | PCCCNOTE ---
Called to ED from Brenda LOTT for placement, Spoke with patient at bedside, She states that she is wheelchair bound and doesn't feel safe at home. She states that she Parkinson's and very hard to transfer from wheelchair to toilet. Needs help from caregiver or son when is available. Son works school coordinator and has a new job. Caregiver is only T,W,F from 3 hours each day. Says that she has tried to apply for medicaid in the past but makes too much money. Wants family day care provider to call her son Hernando at [phone]. Spoke with son and he said that they were just starting to talk about penitentiary, he does confirm that he has a new job and he has to work. He has to work tomorrow. If patient discharges from ED he can pick her up tonight but he cannot stay with her tomorrow. Caregiver has set days. Discussed difference between long term and [facility], he would like to see if she would qualify for SNF through insurance if patient ends up staying. Spoke with Brenda Munoz patient will be staying for observation. Hernando updated, he would like referrals sent to SNF facilities that participate with [facility] in this area [facility], [facility]. Brenda Munoz to order PT/OT for patient, Referrals faxed to [facility] and [facility]ene[facility] Almanzar. OBRA requested. Patient updated.
[2021-02-10 19:47] VITALS: BP 146/75; PULSE 77; RESP 16; O2SAT 99
[2021-02-10 20:00] LABS: Add Urine Microscopic? YES; Appearance Urine Clear (Clear); Bilirubin Urine Negative (Negative); Blood Urine 1+ (Negative); Color Urine Yellow (Yellow); Glucose Urine UA Negative (Negative); Ketones Urine Negative (Negative); Leukocyte Esterase Ur Negative LEU/UL (Negative); Nitrate Urine Positive (Negative); Protein Urine Negative (Negative); Specific Grav Ur 1.018 (1.001-1.035); Urobilinogen Urine Negative mg/dL (<2.0); WBC Urine 0-3 /hpf
[2021-02-10 21:56] VITALS: BP 130/68
[2021-02-10 22:00] VITALS: BP 129/55; PULSE 78; RESP 18; TEMP 36.3; O2SAT 94
--- NOTE | 2021-02-10 22:04 | ADMGEN ---
This patient, Anabel Tavarez, was admitted to [facility] Surg Room 316-02. Patient/family oriented to hospital policies and general routines including ID bracelet, bed and alarms, visiting hours, pain management, procedures, bathroom and other care routines, personal items, smoking policy, room service/diet, and visiting hours. Information on how to activate the Rapid Response Team has been discussed. Patient/Family are encouraged to report perceived risks to care and to ask questions if they do not understand what they are told or what they should do.
[2021-02-10 22:10] VITALS: BMI 24.9
--- NOTE | 2021-02-10 23:20 | PM.IMHP ---
H&P: HPI History of Present Illness Date/Time: 02/10/21 23:20 this is a 80-year-old female patient who has a 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 The patient states that she lives home alone and has become very weak. She states that she has not felt safe at home. She has been having some dysuria. She denied any fever chills or shortness of breath. The patient has been having some diarrhea. The patient stated that she has been having difficulty getting in the chair to go to the bathroom. She knows that she is constipated but did not feel safe using a laxative as she felt that she would not safely get to the bathroom in time. This is all due to her weakness. Abdominal pelvis CT was read as large amount of gas scattered throughout the large and small bowel without rodrigo bowel dilatation or transition point to suggest obstruction. Chronic elevation of the left hemidiaphragm with left basilar atelectasis. Patient had nitrates in her urine. Since patient was having urinary frequency and urgency she has she was started on Rocephin. Urine cultures are pending. Patient was started on Rocephin in the emergency room. The patient stated that she has some lower abdominal pain around her bladder area. She has burning with urination. She denied any fever chills. The patient is being admitted to observation status on the date of service of 02/10/2021. Chief Complaint: Urinary retention Review of Systems Review of Systems: All systems reviewed & are unremarkable except as noted in HPI and below Constitutional: Constitutional: Reports as per HPI and Reports no additional constitutional complaints Eyes: Eyes: Reports as per HPI and Reports no additional eye complaints ENT: Reports system reviewed and no additional complaints, except as documented and Reports Normal hearing present Cardiovascular: Cardiovascular: Reports no additional cardiovascular complaints Respiratory: Respiratory: Reports no additional respiratory complaints and Reports no additional respiratory complaints Gastrointestinal: Gastrointestinal: Reports as per HPI and Reports no additional gastrointestinal complaints Musculoskeletal: Musculoskeletal: Reports no additional musculoskeletal complaints Integumentary/Breasts: Skin/Breast: Reports system reviewed and no additional complaints, except as docu and Reports as per HPI Neurologic: Reports system reviewed and no additional complaints, except as documented, Reports as per HPI and Reports Normal hearing present Psychiatric: Psychiatric: Reports no additional psychiatric complaints and Reports as per HPI Endocrine: Endocrine: Reports no additional endocrine complaints Hematologic/Lymphatic: Hematologic/Lymphatic: Reports no additional hematologic/lymphatic complaints Allergic/Immunologic: Allergic/Immunologic: Reports no additional allergic/immunologic complaints [facility] Past Medical History Medical History (Updated 02/10/21 @ 23:50 by Christina Brennan NP) Abnormal CT scan, chest Basal cell carcinoma of nose Chronic obstructive pulmonary disease, unspecified Dependent edema Facial droop History of colonic polyps Hyperlipidemia Hypothyroidism (acquired) Neck pain Parkinson's disease Pneumonia Sepsis Small bowel obstruction due to adhesions Tachycardia Takotsubo syndrome Tracheostomy present Surgical History Surgical History (Updated 02/10/21 @ 23:42 by Christina Brennan NP) H/O colonoscopy with polypectomy H/O laryngectomy History of abdominal hysterectomy History of laryngoscopy History of removal of pigmented skin lesion Family History Family History Father Family history of heart disease in male family member before age 55 Mother Family history of heart disease in male family member before age 55 Other Family history of malignant neoplasm Family history of malignant neoplasm of breast in firs
[2021-02-11] MEDS: BISACODYL 10 MG SUPPOSITORY RECTAL ×2 (00:47→17:33)
[2021-02-11 06:00] VITALS: BP 134/74; PULSE 87; RESP 18; TEMP 36.4; O2SAT 97
[2021-02-11 06:04] LABS: Basophils Percent Auto 0.5 % (0.2-1.2); Eosinophils Absolute Auto 0.1 K/mm3 (0-0.3); Eosinophils Percent Auto 0.8 % (0-4.4); Hematocrit 39.1 % (37.0-47.0); Hemoglobin 12.7 g/dL (12.0-15.0); Immature Granulocyte Absolute 0.03 K/mm3 (0.00-0.031); Immature Granulocyte Percent A 0.4 % (0-0.5); Lymphocytes Absolute Auto 1.38 K/mm3 (0.9-3.2); Lymphocytes Percent Auto 18.7 % (18.3-44.2); Mean Corpuscular HGB Conc 32.5 g/dl (32-36); Mean Corpuscular Hemoglobin 27.9 pg (26-34); Mean Corpuscular Volume 85.7 fl (80-100); Mean Platelet Volume 8.9 fl (7.4-10.4); Monocytes Absolute Auto 0.5 K/mm3 (0.1-0.6); Monocytes Percent Auto 6.8 % (2.6-8.5); Neutrophils Absolute Auto 5.4 K/mm3 (1.3-6.7); Neutrophils Percent Auto 72.8 % (45.5-73.1); Platelet Count Result 280 k/mm3 (150-375); Red Blood Count 4.56 M/mm3 (4.2-5.4); Red Cell Distribution Width 13.1 % (11.5-14.5); White Blood Count 7.4 K/mm3 (4.5-10.0)
[2021-02-11 06:16] LABS: Alanine Aminotransferase 10 U/L (4-35); Albumin Level 4.4 g/dL (3.5-5.1); Alkaline Phosphatase 52 U/L (38-126); Anion Gap 8 mmol/L (8-16); Aspartate Amino Transferase 21 U/L (14-36); Bilirubin,Total 0.8 mg/dL (0.2-1.3); Blood Urea Nitrogen 18 mg/dL (7-17); Calcium 9.6 mg/dL (8.4-10.2); Carbon Dioxide 26 mmol/L (22-30); Chloride 102 mmol/L (98-107); Estimated CRCL calculation 45 ml/min; Estimated Glomerular Filt Rate > 60; Glucose 81 mg/dL (65-110); Lactate Dehydrogenase 412 U/L (313-618); Lactic Acid Reflex 0.9 mmol/L (0.7-2.1); Potassium 3.9 mmol/L (3.4-5.0); Sodium 136 mmol/L (137-145)
[2021-02-11] MEDS: LEVOTHYROXINE SODIUM 150 MCG TABLET PO (06:34)
--- NOTE | 2021-02-11 09:00 | PM.IMPN ---
Progress Note: A&P Assessment and Plan (1) Fecal impaction: Code(s): K56.41 - Fecal impaction Status: Acute Assessment and Plan: CT of the abdomen indicate fecal impaction Patient received a suppository last night Large BM this morning KUB indicated persistent gaseous distention of the small and large bowel, consistent with adynamic ileus Suppository ordered Soapsuds enema is ordered (2) Abnormal urinalysis: Code(s): R82.90 - Unspecified abnormal findings in urine Status: Acute Assessment and Plan: UA indicated positive nitrates Upon arrival patient was complaining of urgency, burning, and frequency Ceftriaxone was started today will be day 2 Culture was not sent will repeat UA with culture Urinary catheter Trend output (3) Parkinson's disease: Code(s): G20 - Parkinson's disease Status: Chronic Assessment and Plan: Continue with home medication of carbidopa levodopa (4) Generalized weakness: Code(s): R53.1 - Weakness Status: Acute Assessment and Plan: Patient was at home by herself and is able to take care of her ADLs and her home Reports not able to do this for the last 3 days PT OT evaluation. career coordinator consultation greatly be appreciated Would like to be placed in a [facility] or rehab facility. Patient stated she does not feel safe to be at home by herself (5) Hyperlipidemia: Code(s): E78.5 - Hyperlipidemia, unspecified Status: Chronic Assessment and Plan: Will get lipid panel in the a.m. 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 suctioning (7) Hypothyroidism (acquired): Code(s): E03.9 - Hypothyroidism, unspecified Status: Chronic Assessment and Plan: Continue home levothyroxine 150 mcg TSH high at 8.390 Might need to titrate the levothyroxine down (8) Urinary retention: Code(s): R33.9 - Retention of urine, unspecified Status: Acute Assessment and Plan: Reports urinary retention Urinary catheter at this time Trend output Will need post residual void with voiding trial Possible urology consult Time Spent With Patient Time with patient: Greater than 35 minutes Subjective Date/time seen: 02/11/21 09:00 Interval history: Date/Time: 02/10/21 23:20 This is a 80-year-old female patient who has a 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 The patient states that she lives home alone and has become very weak. She states that she has not felt safe at home. She has been having some dysuria. She denied any fever chills or shortness of breath. The patient has been having some diarrhea. The patient stated that she has been having difficulty getting in the chair to go to the bathroom. She knows that she is constipated but did not feel safe using a laxative as she felt that she would not safely get to the bathroom in time. This is all due to her weakness. Abdominal pelvis CT was read as large amount of gas scattered throughout the large and small bowel without rodrigo bowel dilatation or transition point to suggest obstruction. Chronic elevation of the left hemidiaphragm with left basilar atelectasis. Patient had nitrates in her urine. Since patient was having urinary frequency and urgency she has she was started on Rocephin. Urine cultures are pending. Patient was started on Rocephin in the emergency room. The patient stated that she has some lower abdominal pain around her bladder area. She has burning with urination. She denied any fever chills. Date/Time: 02/11/21 0900 Patient was lying in bed. She stated that she was hungry and nausea
--- NOTE | 2021-02-11 09:00 | P.PNIM_ITS ---
Progress Note: A&P Assessment and Plan (1) Fecal impaction: Code(s): K56.41 - Fecal impaction Status: Acute Assessment and Plan: * CT of the abdomen indicate fecal impaction * Patient received a suppository last night * Large BM this morning * KUB indicated persistent gaseous distention of the small and large bowel, consistent with adynamic ileus * Suppository ordered * Soapsuds enema is ordered (2) Abnormal urinalysis: Code(s): R82.90 - Unspecified abnormal findings in urine Status: Acute Assessment and Plan: * UA indicated positive nitrates * Upon arrival patient was complaining of urgency, burning, and frequency * Ceftriaxone was started today will be day 2 * Culture was not sent will repeat UA with culture * Urinary catheter * Trend output (3) Parkinson's disease: Code(s): G20 - Parkinson's disease Status: Chronic Assessment and Plan: * Continue with home medication of carbidopa levodopa (4) Generalized weakness: Code(s): R53.1 - Weakness Status: Acute Assessment and Plan: * Patient was at home by herself and is able to take care of her ADLs and her home * Reports not able to do this for the last 3 days * PT OT evaluation. * student services coordinator consultation greatly be appreciated * Would like to be placed in a [facility] or rehab facility. * Patient stated she does not feel safe to be at home by herself (5) Hyperlipidemia: Code(s): E78.5 - Hyperlipidemia, unspecified Status: Chronic Assessment and Plan: * Will get lipid panel in the a.m. * Consider restarting atorvastatin (6) Tracheostomy status: Code(s): Z93.0 - Tracheostomy status Status: Acute Assessment and Plan: * This is old as there was just the ostomy left * Patient is able to communicate * P.r.n. suctioning (7) Hypothyroidism (acquired): Code(s): E03.9 - Hypothyroidism, unspecified Status: Chronic Assessment and Plan: * Continue home levothyroxine 150 mcg * TSH high at 8.390 * Might need to titrate the levothyroxine down (8) Urinary retention: Code(s): R33.9 - Retention of urine, unspecified Status: Acute Assessment and Plan: * Reports urinary retention * Urinary catheter at this time * Trend output * Will need post residual void with voiding trial * Possible urology consult Time Spent With Patient Time with patient: Greater than 35 minutes Subjective Date/time seen: 02/11/21 09:00 Interval history: Date/Time: 02/10/21 23:20 This is a 80-year-old female patient who has a 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 The patient states that she lives home alone and has become very weak. She states that she has not felt safe at home. She has been having some dysuria. She denied any fever chills or shortness of breath. The patient has been having some diarrhea. The patient stated that she has been having difficulty getting in the chair to go to the bathroom. She knows that she is constipated but did not feel safe using a laxative as she felt that she would not safely get to the bathroom in time. This is all due to her weakness. Abdominal pelvis CT was read as large amount of gas scattered throughout the large and small bowel without rodrigo bowel dilatation or transition point to suggest obstruction. Chronic
[2021-02-11] MEDS: METOCLOPRAMIDE HCL 10 MG TABLET PO ×2 (09:17→17:33)
[2021-02-11] MEDS: CARBIDOPA/LEVODOPA 25/100 MG TABLET 1 TABLET PO ×3 (09:17→17:33)
[2021-02-11] MEDS: FUROSEMIDE 20 MG TABLET PO ×2 (09:17→17:33)
[2021-02-11] MEDS: DOCUSATE SODIUM 100 MG CAPSULE PO (10:10)
[2021-02-11 12:38] LABS: Total Triiodothyronine (T3) 1.12 NG/ML (0.97-1.69)
[2021-02-11 14:00] VITALS: BP 131/75; PULSE 84; RESP 16; TEMP 36.7; O2SAT 97
[2021-02-11 20:00] VITALS: PULSE 69; RESP 18; O2SAT 97
[2021-02-11 21:49] VITALS: BP 95/46; PULSE 69; RESP 18; TEMP 36.2; O2SAT 97
[2021-02-12] MEDS: LEVOTHYROXINE SODIUM 150 MCG TABLET PO (05:36)
[2021-02-12 05:54] VITALS: BP 134/59; PULSE 72; RESP 18; TEMP 36.4; O2SAT 100
[2021-02-12 06:36] LABS: Basophils Percent Auto 0.8 % (0.2-1.2); Eosinophils Absolute Auto 0.1 K/mm3 (0-0.3); Eosinophils Percent Auto 1.9 % (0-4.4); Hematocrit 33.3 % (37.0-47.0); Hemoglobin 10.9 g/dL (12.0-15.0); Immature Granulocyte Absolute 0.01 K/mm3 (0.00-0.031); Immature Granulocyte Percent A 0.2 % (0-0.5); Lymphocytes Absolute Auto 1.41 K/mm3 (0.9-3.2); Lymphocytes Percent Auto 26.7 % (18.3-44.2); Mean Corpuscular HGB Conc 32.7 g/dl (32-36); Mean Corpuscular Volume 85.6 fl (80-100); Mean Platelet Volume 8.8 fl (7.4-10.4); Monocytes Absolute Auto 0.4 K/mm3 (0.1-0.6); Monocytes Percent Auto 8.1 % (2.6-8.5); Neutrophils Absolute Auto 3.3 K/mm3 (1.3-6.7); Neutrophils Percent Auto 62.3 % (45.5-73.1); Platelet Count Result 231 k/mm3 (150-375); Red Blood Count 3.89 M/mm3 (4.2-5.4); Red Cell Distribution Width 13.3 % (11.5-14.5); White Blood Count 5.3 K/mm3 (4.5-10.0)
[2021-02-12 06:52] LABS: Alanine Aminotransferase 7 U/L (4-35); Albumin Level 3.8 g/dL (3.5-5.1); Alkaline Phosphatase 42 U/L (38-126); Anion Gap 6 mmol/L (8-16); Aspartate Amino Transferase 20 U/L (14-36); Bilirubin,Total 0.6 mg/dL (0.2-1.3); Blood Urea Nitrogen 21 mg/dL (7-17); Carbon Dioxide 26 mmol/L (22-30); Chloride 102 mmol/L (98-107); Estimated CRCL calculation 36 ml/min; Estimated Glomerular Filt Rate 53; Glucose 83 mg/dL (65-110); Magnesium 1.9 mg/dL (1.6-2.3); Potassium 3.9 mmol/L (3.4-5.0); Sodium 134 mmol/L (137-145)
[2021-02-12] MEDS: METOCLOPRAMIDE HCL 10 MG TABLET PO ×2 (08:20→16:36)
[2021-02-12] MEDS: FUROSEMIDE 20 MG TABLET PO ×2 (08:20→16:36)
[2021-02-12] MEDS: CARBIDOPA/LEVODOPA 25/100 MG TABLET 1 TABLET PO ×3 (08:20→16:36)
[2021-02-12] MEDS: DOCUSATE SODIUM 100 MG CAPSULE PO ×2 (08:20→21:05)
[2021-02-12] MEDS: ENOXAPARIN 40 MG/0.4 ML SYRINGE SUB-Q (08:26)
--- NOTE | 2021-02-12 08:43 | PCOTNOTE ---
Attempted to see patient this AM for occupational therapy patient still eating breakfast and kindly asked to finish her coffee and food.
[2021-02-12 09:00] LABS: Cholesterol 190 mg/dL (0-200); HDL Direct 70 mg/dL; Triglycerides 94 mg/dL (<150)
[2021-02-12 09:11] LABS: LDL Cholesterol Direct 84 mg/dL
--- NOTE | 2021-02-12 10:39 | PCOTNOTE ---
Attempted to see patient for second attempt this date. Patient currently with diploma pharmacy technician.
--- NOTE | 2021-02-12 11:00 | P.PNIM_ITS ---
Progress Note: A&P Assessment and Plan (1) Fecal impaction: Code(s): K56.41 - Fecal impaction Status: Acute Assessment and Plan: * CT of the abdomen indicate fecal impaction * Patient received a suppository again yesterday * Large BM yesterday morning * KUB indicated persistent gaseous distention of the small and large bowel, consistent with adynamic ileus * Suppository ordered PRN * Soapsuds enema is ordered (2) Abnormal urinalysis: Code(s): R82.90 - Unspecified abnormal findings in urine Status: Acute Assessment and Plan: * UA indicated positive nitrates * Upon arrival patient was complaining of urgency, burning, and frequency * Ceftriaxone was started today will be day 3 * Repeat culture pending * Urinary catheter * Trend output (3) Parkinson's disease: Code(s): G20 - Parkinson's disease Status: Chronic Assessment and Plan: * Continue with home medication of carbidopa levodopa (4) Generalized weakness: Code(s): R53.1 - Weakness Status: Acute Assessment and Plan: * Wheelchair bound, but able to transfer and perform ADLs at baseline * Patient was at home by herself and is able to take care of her ADLs and her home * Reports not able to do this for the last 3 days * PT OT evaluation. * social service coordinator consultation greatly be appreciated * Would like to be placed in a half-way or rehab facility, still pending * Patient stated she does not feel safe to be at home by herself (5) Hyperlipidemia: Code(s): E78.5 - Hyperlipidemia, unspecified Status: Chronic Assessment and Plan: * lipid panel: Cholesterol 190, Triglycerides 94, LDL 84, HDL 70 * Consider restarting atorvastatin (6) Tracheostomy status: Code(s): Z93.0 - Tracheostomy status Status: Acute Assessment and Plan: * This is old as there was just the ostomy left * Patient is able to communicate * P.r.n. suctioning (7) Hypothyroidism (acquired): Code(s): E03.9 - Hypothyroidism, unspecified Status: Chronic Assessment and Plan: * Continue home levothyroxine 150 mcg * TSH high at 8.390 * Might need to titrate the levothyroxine down (8) Urinary retention: Code(s): R33.9 - Retention of urine, unspecified Status: Acute Assessment and Plan: * Reports urinary retention * Urinary catheter at this time * Trend output * Will need post residual void with voiding trial * Possible urology consult Time Spent With Patient Time with patient: Greater than 35 minutes Subjective Date/time seen: 02/12/21 06:33 Interval history: Date/Time: 02/10/21 23:20 This is a 80-year-old female patient who has a 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 The patient states that she lives home alone and has become very weak. She states that she has not felt safe at home. She has been having some dysuria. She denied any fever chil ls or shortness of breath. The patient has been having some diarrhea. The patient stated that she has been having difficulty getting in the chair to go to the bathroom. She knows that she is constipated but did not feel safe using a laxative as she felt that she would not safely get to the bathroom in time. This is all due to her weakness. Abdominal pelvis CT was read as large amount of gas scattered throughout
--- NOTE | 2021-02-12 11:00 | PM.IMPN ---
Progress Note: A&P Assessment and Plan (1) Fecal impaction: Code(s): K56.41 - Fecal impaction Status: Acute Assessment and Plan: CT of the abdomen indicate fecal impaction Patient received a suppository again yesterday Large BM yesterday morning KUB indicated persistent gaseous distention of the small and large bowel, consistent with adynamic ileus Suppository ordered PRN Soapsuds enema is ordered (2) Abnormal urinalysis: Code(s): R82.90 - Unspecified abnormal findings in urine Status: Acute Assessment and Plan: UA indicated positive nitrates Upon arrival patient was complaining of urgency, burning, and frequency Ceftriaxone was started today will be day 3 Repeat culture pending Urinary catheter Trend output (3) Parkinson's disease: Code(s): G20 - Parkinson's disease Status: Chronic Assessment and Plan: Continue with home medication of carbidopa levodopa (4) Generalized weakness: Code(s): R53.1 - Weakness Status: Acute Assessment and Plan: Wheelchair bound, but able to transfer and perform ADLs at baseline Patient was at home by herself and is able to take care of her ADLs and her home Reports not able to do this for the last 3 days PT OT evaluation. digital traffic coordinator consultation greatly be appreciated Would like to be placed in a residential or rehab facility, still pending Patient stated she does not feel safe to be at home by herself (5) Hyperlipidemia: Code(s): E78.5 - Hyperlipidemia, unspecified Status: Chronic Assessment and Plan: lipid panel: Cholesterol 190, Triglycerides 94, LDL 84, HDL 70 Consider restarting atorvastatin (6) Tracheostomy status: Code(s): Z93.0 - Tracheostomy status Status: Acute Assessment and Plan: This is old as there was just the ostomy left Patient is able to communicate P.r.n. suctioning (7) Hypothyroidism (acquired): Code(s): E03.9 - Hypothyroidism, unspecified Status: Chronic Assessment and Plan: Continue home levothyroxine 150 mcg TSH high at 8.390 Might need to titrate the levothyroxine down (8) Urinary retention: Code(s): R33.9 - Retention of urine, unspecified Status: Acute Assessment and Plan: Reports urinary retention Urinary catheter at this time Trend output Will need post residual void with voiding trial Possible urology consult Time Spent With Patient Time with patient: Greater than 35 minutes Subjective Date/time seen: 02/12/21 06:33 Interval history: Date/Time: 02/10/21 23:20 This is a 80-year-old female patient who has a 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 The patient states that she lives home alone and has become very weak. She states that she has not felt safe at home. She has been having some dysuria. She denied any fever chills or shortness of breath. The patient has been having some diarrhea. The patient stated that she has been having difficulty getting in the chair to go to the bathroom. She knows that she is constipated but did not feel safe using a laxative as she felt that she would not safely get to the bathroom in time. This is all due to her weakness. Abdominal pelvis CT was read as large amount of gas scattered throughout the large and small bowel without rodrigo bowel dilatation or transition point to suggest obstruction. Chronic elevation of the left hemidiaphragm with left basilar atelectasis. Patient had nitrates in her urine. Since patient was having urinary frequency and urgency she has she was started on Rocephin. Urine cultures are pending. Patient was started on Rocephin in the emergency room. The patient stated that she has some lower abdominal pain around her bladder area. She has burning with urination. She denied any fever ch
--- NOTE | 2021-02-12 12:24 | PCCARD ---
Anabel Quintero had a echo ordered for 03/14/21. Tech went to room to do echo and was having a hard time finding any standard echo images so she called repulping supervisor to see if she could obtain any views on Ms Frye. Bods Developer was able to get a image but nothing of diagnostic quality. a few images were obtained and a report was made for sharepoint consultant interpretation. Editing Intern Dr. Madsen was called before he was to read echo explaining the difficulty of study to see if he even wanted to make any comments. Dr. Madsen called repulping supervisor and said he could not see anything that he could comment on to even give a ejection fraction and to cancel and not charge patient. Bods Developer cancelled test and called Hospitalist phone line and left message to be given to Juan Pablo Griffin APN in regards to findings.
[2021-02-12 14:00] VITALS: BP 92/45; PULSE 81; RESP 16; TEMP 36.4; O2SAT 96
[2021-02-12] MEDS: SODIUM CHLORIDE 0.9% IV 250 ML IV CONT (16:35)
[2021-02-13] MEDS: LEVOTHYROXINE SODIUM 150 MCG TABLET PO (05:42)
[2021-02-13 06:13] VITALS: BP 93/60; PULSE 69; RESP 16; TEMP 37; O2SAT 97
[2021-02-13 06:42] LABS: Alanine Aminotransferase 7 U/L (4-35); Albumin Level 3.9 g/dL (3.5-5.1); Alkaline Phosphatase 45 U/L (38-126); Anion Gap 6 mmol/L (8-16); Aspartate Amino Transferase 20 U/L (14-36); Bilirubin,Total 0.4 mg/dL (0.2-1.3); Blood Urea Nitrogen 24 mg/dL (7-17); Carbon Dioxide 28 mmol/L (22-30); Chloride 99 mmol/L (98-107); Estimated CRCL calculation 33 ml/min; Estimated Glomerular Filt Rate 48; Glucose 87 mg/dL (65-110); Magnesium 1.9 mg/dL (1.6-2.3); Potassium 4.1 mmol/L (3.4-5.0); Sodium 133 mmol/L (137-145)
[2021-02-13 06:55] LABS: Basophils Percent Auto 0.4 % (0.2-1.2); Eosinophils Absolute Auto 0.1 K/mm3 (0-0.3); Hematocrit 34.7 % (37.0-47.0); Immature Granulocyte Absolute 0.02 K/mm3 (0.00-0.031); Immature Granulocyte Percent A 0.4 % (0-0.5); Lymphocytes Absolute Auto 1.28 K/mm3 (0.9-3.2); Lymphocytes Percent Auto 25.5 % (18.3-44.2); Mean Corpuscular HGB Conc 31.7 g/dl (32-36); Mean Corpuscular Volume 88.3 fl (80-100); Mean Platelet Volume 9.1 fl (7.4-10.4); Monocytes Absolute Auto 0.4 K/mm3 (0.1-0.6); Monocytes Percent Auto 8.6 % (2.6-8.5); Neutrophils Absolute Auto 3.2 K/mm3 (1.3-6.7); Neutrophils Percent Auto 63.1 % (45.5-73.1); Platelet Count Result 224 k/mm3 (150-375); Red Blood Count 3.93 M/mm3 (4.2-5.4); Red Cell Distribution Width 13.3 % (11.5-14.5)
--- NOTE | 2021-02-13 08:20 | PM.DS ---
DS: Admitting Diagnosis Discharge Date date of service 02/13/2021 at 8:20 a.m. Admitting Diagnosis fecal impaction DS: Discharge Diagnosis Discharge Diagnosis (1) Fecal impaction: Code(s): K56.41 - Fecal impaction Status: Acute Assessment and Plan: CT of the abdomen indicate fecal impaction Patient received a suppository again yesterday Large BM yesterday morning KUB indicated persistent gaseous distention of the small and large bowel, consistent with adynamic ileus Suppository ordered PRN Soapsuds enema is ordered (2) Abnormal urinalysis: Code(s): R82.90 - Unspecified abnormal findings in urine Status: Acute Assessment and Plan: UA indicated positive nitrates Upon arrival patient was complaining of urgency, burning, and frequency Ceftriaxone was started today will be day 3 Repeat culture pending Urinary catheter Trend output (3) Parkinson's disease: Code(s): G20 - Parkinson's disease Status: Chronic Assessment and Plan: Continue with home medication of carbidopa levodopa (4) Generalized weakness: Code(s): R53.1 - Weakness Status: Acute Assessment and Plan: Wheelchair bound, but able to transfer and perform ADLs at baseline Patient was at home by herself and is able to take care of her ADLs and her home Reports not able to do this for the last 3 days PT OT evaluation. acquisition marketing coordinator consultation greatly be appreciated Would like to be placed in a half-way or rehab facility, still pending Patient stated she does not feel safe to be at home by herself (5) Hyperlipidemia: Code(s): E78.5 - Hyperlipidemia, unspecified Status: Chronic Assessment and Plan: lipid panel: Cholesterol 190, Triglycerides 94, LDL 84, HDL 70 Consider restarting atorvastatin (6) Tracheostomy status: Code(s): Z93.0 - Tracheostomy status Status: Acute Assessment and Plan: This is old as there was just the ostomy left Patient is able to communicate P.r.n. suctioning (7) Hypothyroidism (acquired): Code(s): E03.9 - Hypothyroidism, unspecified Status: Chronic Assessment and Plan: Continue home levothyroxine 150 mcg TSH high at 8.390 Might need to titrate the levothyroxine down (8) Urinary retention: Code(s): R33.9 - Retention of urine, unspecified Status: Acute Assessment and Plan: Reports urinary retention Urinary catheter at this time Trend output Will need post residual void with voiding trial Possible urology consult DS: Summary Hospital Course Hospital Course: Anabel escalera is an 80-year-old female with a past medical history of laryngeal cancer, Parkinson's, hypothyroidism who presented to the ED for weakness and diarrhea. Abdominal pelvis CT showed large amounts of gas scattered throughout the large intestine small bowel without dilatation or obstruction With moderate amount of stool. Patient was given suppository and did have a pretty decent bowel movement. Patient was started on clear liquids and her diet has been advanced she has been able to tolerate a diet. patient does have complaints that she feels like she can go however today she told me that she the bedpan could she is going to have a bowel movement. Patient has had multiple bowel movements since admission and feels a lot better and is ready to go today. Patient is weak. Urinalysis did look abnormal upon arrival however urine culture had no growth. Today patient looks great and all of her labs have been stable throughout the entire visit. Upon entry to the room patient was eating breakfast. Patient denies chest pain, shortness of breath, nausea, vomiting, diarrhea, constipation. Repeat xray shows persistent adynamic ileus. Talked with Dr. Wagner who stated there is no obstruction and that is what is important to rule out. Will
--- NOTE | 2021-02-13 08:20 | P.DS_ITS ---
DS: Admitting Diagnosis Discharge Date date of service 02/13/2021 at 8:20 a.m. Admitting Diagnosis fecal impaction DS: Discharge Diagnosis Discharge Diagnosis (1) Fecal impaction: Code(s): K56.41 - Fecal impaction Status: Acute Assessment and Plan: * CT of the abdomen indicate fecal impaction * Patient received a suppository again yesterday * Large BM yesterday morning * KUB indicated persistent gaseous distention of the small and large bowel, consistent with adynamic ileus * Suppository ordered PRN * Soapsuds enema is ordered (2) Abnormal urinalysis: Code(s): R82.90 - Unspecified abnormal findings in urine Status: Acute Assessment and Plan: * UA indicated positive nitrates * Upon arrival patient was complaining of urgency, burning, and frequency * Ceftriaxone was started today will be day 3 * Repeat culture pending * Urinary catheter * Trend output (3) Parkinson's disease: Code(s): G20 - Parkinson's disease Status: Chronic Assessment and Plan: * Continue with home medication of carbidopa levodopa (4) Generalized weakness: Code(s): R53.1 - Weakness Status: Acute Assessment and Plan: * Wheelchair bound, but able to transfer and perform ADLs at baseline * Patient was at home by herself and is able to take care of her ADLs and her home * Reports not able to do this for the last 3 days * PT OT evaluation. * qualitative field coordinator consultation greatly be appreciated * Would like to be placed in a halfway or rehab facility, still pending * Patient stated she does not feel safe to be at home by herself (5) Hyperlipidemia: Code(s): E78.5 - Hyperlipidemia, unspecified Status: Chronic Assessment and Plan: * lipid panel: Cholesterol 190, Triglycerides 94, LDL 84, HDL 70 * Consider restarting atorvastatin (6) Tracheostomy status: Code(s): Z93.0 - Tracheostomy status Status: Acute Assessment and Plan: * This is old as there was just the ostomy left * Patient is able to communicate * P.r.n. suctioning (7) Hypothyroidism (acquired): Code(s): E03.9 - Hypothyroidism, unspecified Status: Chronic Assessment and Plan: * Continue home levothyroxine 150 mcg * TSH high at 8.390 * Might need to titrate the levothyroxine down (8) Urinary retention: Code(s): R33.9 - Retention of urine, unspecified Status: Acute Assessment and Plan: * Reports urinary retention * Urinary catheter at this time * Trend output * Will need post residual void with voiding trial * Possible urology consult DS: Summary Hospital Course Hospital Course: Anabel escalera is an 80-year-old female with a past medical history of laryngeal cancer, Parkinson's, hypothyroidism who presented to the ED for weakness and diarrhea. Abdominal pelvis CT showed large amounts of gas scattered throughout the large intestine small bowel without dilatation or obstruction With moderate amount of stool. Patient was given suppository and did have a pretty decent bowel movement. Patient was started on clear liquids and her diet has been advanced she has been able to tolerate a diet. patient does have complaints that she feels like she can go however today she told me that she the bedpan could she is going to have a bowel movement. Patient has had multiple bowel movements since admissio
[2021-02-13] MEDS: CARBIDOPA/LEVODOPA 25/100 MG TABLET 1 TABLET PO ×2 (09:45→12:00)
[2021-02-13] MEDS: DOCUSATE SODIUM 100 MG CAPSULE PO (09:45)
[2021-02-13] MEDS: ENOXAPARIN 40 MG/0.4 ML SYRINGE SUB-Q (09:45)
[2021-02-13] MEDS: METOCLOPRAMIDE HCL 10 MG TABLET PO (09:46)
[2021-02-13] MEDS: FUROSEMIDE 20 MG TABLET PO (09:46)
[2021-02-13 13:57] LABS: EDCOVIDSCREEN Negative (Negative)
[2021-02-13 14:00] VITALS: BP 163/67; PULSE 90; RESP 14; TEMP 36.2; O2SAT 96
== END 2021-02-13 17:00 ==
LOC: ANHED 20:47 → ANH3MEDSUR 20:51
PROVIDERS: Emergency Medicine; Nurse Practitioner; Admitting Provider Family Medicine; Emergency Provider Emergency Medicine; PCP Internal Medicine; Visit Provider Family Medicine
DX: K56.41 Fecal impaction (principal); R82.90 Unspecified abnormal findings in urine; R33.9 Retention of urine, unspecified; G20 Parkinson's disease; R53.1 Weakness; R11.2 Nausea with vomiting, unspecified; R19.7 Diarrhea, unspecified; J44.9 Chronic obstructive pulmonary disease, unspecified; E03.9 Hypothyroidism, unspecified; R60.9 Edema, unspecified; E78.5 Hyperlipidemia, unspecified; I51.81 Takotsubo syndrome; Z90.02 Acquired absence of larynx; Z85.21 Personal history of malignant neoplasm of larynx; Z93.0 Tracheostomy status; Z87.891 Personal history of nicotine dependence; Z79.82 Long term (current) use of aspirin; Z79.51 Long term (current) use of inhaled steroids; Z20.822 Contact with and (suspected) exposure to COVID-19
CPT/HCPCS: 36415; 71046; 74018; 74177; 80053; 80061; 81001; 82728; 83605; 83615; 83690; 83735; 83880; 84439; 84443; 84480; 85025; 87040; 87086; 87426; 93005; 96365; 96366; 96372; 97110; 97162; 97166; 99285; A9270; C9803; G0378; J0696; J1650; J7050; Q9967

== ENCOUNTER 2021-02-28 13:48 | Emergency (ER) | payer OTHER, SELFPAY ==
--- NOTE | ~2021-02-28 | XR_ITS ---
EXAMINATION: XR chest 1V portable EXAM DATE: 02/28/2021 21:27 INDICATION: Tracheostomy, laryngectomy. TECHNIQUE: Portable AP frontal chest x-ray was obtained. Comparison is made to prior examination from 02/10/2021. FINDINGS: Chronically elevated left hemidiaphragm with gas-filled bowel below, similar appearance on prior studies. There is cardiomegaly. There is no pneumothorax suspected. There are no pleural effusi ons. No focal acute air space disease. The bones are osteopenic. There are bony degenerative changes . Thyroidectomy clips. IMPRESSION: 1. No acute findings or interval change. 2. Chronic left hemidiaphragm elevation, constipation. Reviewed, dictated and finalized at location A. DATA ARCHITECT
[2021-02-28 13:58] VITALS: BP 176/84; PULSE 113; RESP 16; TEMP 36.6; O2SAT 98
--- NOTE | 2021-02-28 14:02 | ECG_ITS ---
Measurements Intervals [place] Rate: 108 P: 47 RI: 151 QRS: -5 QRSD: 94 T: 64 QT: 299 QTc: 401 Interpretive Statements SINUS TACHYCARDIA EARLY PRECORDIAL R/S TRANSITION CONSIDER INFERIOR INFARCT, AGE INDETERMINATE NONSPECIFIC ST & T-WAVE ABNORMALITY- ANTEROLAT/HIGH LAT LEADS BASELINE ARTIFACT- I, II, AVR ABNORMAL ECG Electronically Signed On 02-28-2021 16:56:51 RODDING MACHINE TENDER by Ananth Madsen D.O.
[2021-02-28 17:40] VITALS: BP 193/90; PULSE 109; TEMP 36.8; O2SAT 98
[2021-02-28 20:08] VITALS: BP 144/73; PULSE 78; RESP 20; O2SAT 99
--- NOTE | 2021-02-28 22:04 | ED.GENADULT ---
HPI - General Adult General Chief complaint: Unspecified Stated complaint: ? problems with trach stoma Time Seen by Provider: 02/28/21 20:58 Source: patient Mode of arrival: EMS Limitations: other (history difficult as patient has trach) History of Present Illness HPI narrative: This is an 80 year old female with history of laryngeal CA s/p laryngectomy, tracheostomy who presents from [facility] for [facility] of her trach stoma. Patient states she is not sure why they sent her to ER. They told her something was wrong with her trach stoma but she told them everything was fine. She states last night she may have washed suction tubing in ice tea and she may have used tubing to try to suction her self. She otherwise denies choking on tea or using tea to suction. She denies shortness of breath, chest pain, fever, nausea, vomiting or weakness. She states she does feel like she needs to be suctioned. Related Data Home Medications Medication Instructions Recorded Confirmed carbidopa-levodopa [Sinemet] 1 tablet PO TID 02/10/21 02/10/21 ipratropium-albuterol ml INHALATION 02/10/21 metoclopramide HCl [Reglan] 10 mg PO BID 02/10/21 02/10/21 Allergies Allergy/AdvReac Type Severity Reaction Status Date / Time No Known Allergies Allergy Verified 12/31/19 11:05 Review of Systems Review of Systems: All systems reviewed & are unremarkable except as noted in HPI and below PMFSH Past Medical History Medical History Abnormal CT scan, chest Basal cell carcinoma of nose Chronic obstructive pulmonary disease, unspecified Dependent edema Facial droop History of colonic polyps Hyperlipidemia Hypothyroidism (acquired) Neck pain Parkinson's disease Pneumonia Sepsis Small bowel obstruction due to adhesions Tachycardia Takotsubo syndrome Tracheostomy present Surgical History Surgical History (Updated 02/10/21 @ 23:42 by Christina Brennan NP) H/O colonoscopy with polypectomy H/O laryngectomy History of abdominal hysterectomy History of laryngoscopy History of removal of pigmented skin lesion Family History Family History Father Family history of heart disease in male family member before age 55 Mother Family history of heart disease in male family member before age 55 Other Family history of malignant neoplasm Family history of malignant neoplasm of breast in first degree relative Social History Social History (Updated 02/10/21 @ 23:37 by Christina Brennan NP) Social History: Of the patient used to smoke. 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 Her has passed since then and she is . The patient stated that she lives home by herself. Her son Edil is listed as the contact%. Code status DNR Smoking packs per day: 2 Smoking cigarettes per day: 40.0 Years smoked: 25 Smoking pack-years: 50.00 Smoking status: Former smoker Tobacco type: cigarettes Second hand tobacco smoke exposure: No Smoking end date: 03/23/02 Alcohol intake: unknown Substance use: unknown Spiritual care concerns: No Exam Const: General: cooperative, well developed, alert and awake Nutritional Appearance: average body habitus Orientation/consciousness: patient oriented x3 Other: has trach stoma with prostheses so some difficulty talking HENMT: Head: normocephalic and atraumatic Face and sinus: sinuses nontender Mouth: Yes Normal oral and palatal mucosa present and Yes lip normal Throat: uvula midline Eyes: Pupils: Equal, round and reactive pupils present Neck: Other: trach stoma with prosthesis in place, no drainage, no erythema Chest: Chest palpation & inspection: normal inspection of the chest Resp: Effort & Inspection: normal respiratory effort Auscultation: clear to auscultation bilaterally Cardio: Jugular venous distension: no JVD GI:
[2021-03-01 00:18] VITALS: BP 101/59; PULSE 96; O2SAT 98
[2021-03-01 01:44] VITALS: BP 103/63; PULSE 90; RESP 15; O2SAT 100
[2021-03-01 02:54] VITALS: BP 101/66; PULSE 63; RESP 15; O2SAT 97
== END 2021-03-01 02:56 ==
PROVIDERS: Emergency Provider General Practice; PCP Internal Medicine
DX: Z43.0 Encounter for attention to tracheostomy (principal); J44.9 Chronic obstructive pulmonary disease, unspecified; E03.9 Hypothyroidism, unspecified; G20 Parkinson's disease; Z87.01 Personal history of pneumonia (recurrent); I51.81 Takotsubo syndrome; Z90.02 Acquired absence of larynx; Z85.21 Personal history of malignant neoplasm of larynx; Z85.828 Personal history of other malignant neoplasm of skin; Z86.010 Personal history of colon polyps; Z87.891 Personal history of nicotine dependence; R00.0 Tachycardia, unspecified; R94.31 Abnormal electrocardiogram [ECG] [EKG]
CPT/HCPCS: 71045; 93005; 99283

== ENCOUNTER 2021-08-02 11:20 | Observation (INO) | payer OTHER, SELFPAY ==
--- NOTE | ~2021-08-02 | XR_ITS ---
EXAMINATION: XR knee RT 3V DATE: 08/02/2021 12:53 INDICATION: Right knee pain with anterior wound post fall TECHNIQUE: Anteroposterior, oblique and crosstable lateral views of the right knee were obtained COMPARISON: None. FINDINGS: Alignment is normal. No fracture. Joint spaces appear normal but could be underestimated on nonweigh tbearing imaging. Small enthesophyte at the proximal pole of the patella. No joint effusion/layering lipohemarthrosis. Mild prepatellar soft tissue swelling. Atherosclerotic calcifications along the rig ht femoral and popliteal arteries. IMPRESSION: 1. No right knee joint effusion or acute osseous abnormality. Reviewed, dictated and finalized at location A.
--- NOTE | ~2021-08-02 | XR_ITS ---
EXAMINATION: XR shoulder RT min 2V DATE: 08/02/2021 12:53 INDICATION: Right shoulder pain post fall TECHNIQUE: AP internally and externally rotated, AP oblique externally rotated and transscapular Y vi ews of the right shoulder were obtained. COMPARISON: 08/04/2003 FINDINGS: Chronic healed fracture deformity at the proximal right humerus. Alignment remains otherwise normal. No acute fractures. Moderate nonuniform joint space narrowing at the right glenohumeral joint consist ent with secondary osteoarthritis. Mild acromioclavicular osteoarthritis. Surgical clips at the base of the neck. IMPRESSION: Old healed proximal right humeral fracture with moderate secondary glenohumeral osteoarthritis. No ac shonna osseous abnormality. Reviewed, dictated and finalized at location A. IMPRESSION: Old healed proximal right humeral fracture with moderate secondary glenohumeral osteoarthritis. No acute osseous abnormality.
--- NOTE | ~2021-08-02 | XR_ITS ---
EXAMINATION: XR chest 1V portable DATE: 08/02/2021 12:54 INDICATION: Weakness. TECHNIQUE: frontal view of the chest was obtained. COMPARISON: Chest radiograph dated 02/28/2021 FINDINGS: Chronic elevation of the left hemidiaphragm with minimal left basilar atelectasis. There is also mild biapical pleural-parenchymal scarring. No other airspace opacities, pulmonary edema, pleural effusio n or pneumothorax. Heart size is normal but shifted towards the right due to the elevation of the rig ht hemidiaphragm. Tortuous and atherosclerotic thoracic aorta. Postoperative changes with multiple khan rgical clips at the base of the neck. This could be related to either prior thyroidectomy or reported tracheostomy. IMPRESSION: 1. Chronic elevation left hemidiaphragm with mild left basilar atelectasis. No other acute cardiopulm onary disease. Reviewed, dictated and finalized at location A. IMPRESSION: 1. Chronic elevation left hemidiaphragm with mild left basilar atelectasis. No other acute cardiopulmonary disease.
--- NOTE | ~2021-08-02 | XR_ITS ---
EXAMINATION: XR barium swallow modified DATE: 08/03/2021 10:55 INDICATION: Status post laryngectomy. Parkinson's disease. TECHNIQUE: The patient was given barium-containing material of multiple consistencies to swallow by t josué speech pathologist while I performed fluoroscopy. Dose-area product was 1.6 Gy-cm2. 4.1 minutes fluoroscopy time FINDINGS: Oral Stage: 5 seconds second delay triggering of swallowing but otherwise normal Pharyngeal Phase: Within functional limits Cervical/Esophageal Stage: Within functional limits IMPRESSION: Modified esophagram findings as above. Please refer to the speech therapy report for spec ific recommendations. Reviewed, dictated and finalized at Location A. Reviewed, dictated and finalized at location A. IMPRESSION: Modified esophagram findings as above. Please refer to the speech t herapy report for specific recommendations.
--- NOTE | ~2021-08-02 | US_ITS ---
US venous doppler [facility] DATE: 08/03/2021 11:00 INDICATION: Swelling of the lower extremities TECHNIQUE: Real-time and color flow imaging and Doppler analysis of the veins of both lower extremiti es COMPARISON: 08/01/2019 venous duplex examination of the lower extremities, reported negative FINDINGS: The greater saphenous veins are patent. There is spontaneous and phasic flow and normal aug mentation and color flow signal and normal compression of the deep veins of both lower extremities. IMPRESSION: No evidence of deep venous thrombosis of the lower extremities Reviewed, dictated and finalized at Location A. Reviewed, dictated and finalized at location A.
[2021-08-02 11:21] VITALS: BP 173/84; PULSE 98; RESP 16; TEMP 36.8; O2SAT 96
--- NOTE | 2021-08-02 11:33 | ECG_ITS ---
Measurements Intervals [place] Rate: 98 P: 3 LA: 154 QRS: -1 QRSD: 90 T: 4 QT: 330 QTc: 422 Interpretive Statements SINUS RHYTHM EARLY PRECORDIAL R/S TRANSITION CONSIDER INFERIOR INFARCT, AGE INDETERMINATE BORDERLINE ST-T WAVE ABNORMALITY- ANTEROLAT/HIGH LAT LEADS BASELINE ARTIFACT- I, II, III, AVR, AVL BORDERLINE ECG Electronically Signed On 08-02-2021 13:09:39 CDT by Ananth Madsen D.O.
--- NOTE | 2021-08-02 11:33 | ED.FALL ---
HPI - Fall General Chief Complaint: Fall Stated Complaint: fall, R knee pain Time Seen by Provider: 08/02/21 11:29 History of Present Illness HPI Narrative: 80-year-old female presents the emergency room for evaluation of right knee pain following a fall from standing position. Patient states that she is becoming increasingly weak over the last several weeks, and feels that the reason for her falls because of her increased weakness. Patient denies any dizziness, lightheadedness, syncope, shortness. She denies fever. Related Data Home Medications Medication Instructions Recorded Confirmed ipratropium-albuterol ml INHALATION 02/10/21 Allergies Allergy/AdvReac Type Severity Reaction Status Date / Time No Known Allergies Allergy Verified 12/31/19 11:05 Review of Systems Review of Systems: CONSTITUTIONAL: Denies fever, chills, or sweats. EYES: Denies visual changes, redness, or discharge. ENT: Denies rhinorrhea, congestion, sore throat, or otalgia. CARDIOVASCULAR: Denies chest pain, palpitations, or edema. RESPIRATORY: Denies cough or dyspnea. GASTROINTESTINAL: Denies abdominal pain, nausea, vomiting, or diarrhea. GENITOURINARY: Denies dysuria or hematuria. SKIN: Denies rash or itching. MUSCULOSKELETAL: Denies back pain, joint pain, or myalgia. NEUROLOGIC: Reports increased weakness PSYCHIATRIC: Denies anxiety or depression. [facility] Past Medical History Medical History Abnormal CT scan, chest Basal cell carcinoma of nose Chronic obstructive pulmonary disease, unspecified Dependent edema Facial droop History of colonic polyps Hyperlipidemia Hypothyroidism (acquired) Neck pain Parkinson's disease Pneumonia Sepsis Small bowel obstruction due to adhesions Tachycardia Takotsubo syndrome Tracheostomy present Surgical History Surgical History H/O colonoscopy with polypectomy H/O laryngectomy History of abdominal hysterectomy History of laryngoscopy History of removal of pigmented skin lesion Family History Family History Father Family history of heart disease in male family member before age 55 Mother Family history of heart disease in male family member before age 55 Other Family history of malignant neoplasm Family history of malignant neoplasm of breast in first degree relative Social History Social History Social History: Of the patient used to smoke. 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 Her has passed since then and she is . The patient stated that she lives home by herself. Her son Edil is listed as the contact%. Code status DNR Smoking packs per day: 2 Smoking cigarettes per day: 40.0 Years smoked: 25 Smoking pack-years: 50.00 Smoking status: Former smoker Tobacco type: cigarettes Second hand tobacco smoke exposure: No Smoking end date: 03/23/02 Alcohol intake: unknown Substance use: unknown Spiritual care concerns: No Exam Narrative: GENERAL: Cachectic appearing HEAD: Normocephalic, atraumatic. EYES: PERRLA and EOMI. ENT: cervical stoma NECK: Supple. No adenopathy or masses. No carotid bruits or JVD CHEST: Clear to auscultation. No respiratory distress. decreased breath sounds throughout HEART: Regular rate and rhythm. No murmur heard. Normal peripheral pulses. +3 pitting edema bilaterally ABDOMEN: Soft, nontender, nondistended, normal active bowel sounds. EXTREMITIES: Normal range of motion. No edema. SKIN: Warm, dry, no rash. NEURO: No focal deficits. Alert and oriented x3. PSYCH: Normal mood and affect. Course Vital Signs Vital signs: Vital Signs Temperature 36.8 C 08/02/21 11:21 Pulse Rate 98 08/02/21 11:21 Respiratory Rate 16 08/02/21 11:21 Blood Pressure 173/84 H
[2021-08-02 11:54] LABS: Basophils Percent Auto 0.3 % (0.2-1.2); Eosinophils Percent Auto 0.3 % (0-4.4); Hematocrit 36.3 % (37.0-47.0); Hemoglobin 11.3 g/dL (12.0-15.0); Immature Granulocyte Absolute 0.03 K/mm3 (0.00-0.031); Immature Granulocyte Percent A 0.5 % (0-0.5); Lymphocytes Absolute Auto 0.42 K/mm3 (0.9-3.2); Lymphocytes Percent Auto 7.2 % (18.3-44.2); Mean Corpuscular HGB Conc 31.1 g/dl (32-36); Mean Corpuscular Hemoglobin 27.3 pg (26-34); Mean Corpuscular Volume 87.7 fl (80-100); Mean Platelet Volume 8.5 fl (7.4-10.4); Monocytes Absolute Auto 0.4 K/mm3 (0.1-0.6); Monocytes Percent Auto 6.5 % (2.6-8.5); Neutrophils Absolute Auto 4.9 K/mm3 (1.3-6.7); Neutrophils Percent Auto 85.2 % (45.5-73.1); Platelet Count Result 259 k/mm3 (150-375); Red Blood Count 4.14 M/mm3 (4.2-5.4); White Blood Count 5.8 K/mm3 (4.5-10.0)
[2021-08-02 12:03] LABS: Alanine Aminotransferase 7 U/L (6-35); Albumin Level 4.3 g/dL (3.5-5.1); Alkaline Phosphatase 60 U/L (38-126); Anion Gap 8 mmol/L (8-16); Aspartate Amino Transferase 25 U/L (14-36); Bilirubin,Total 0.6 mg/dL (0.2-1.3); Blood Urea Nitrogen 18 mg/dL (7-17); Calcium 8.6 mg/dL (8.4-10.2); Carbon Dioxide 25 mmol/L (22-30); Chloride 104 mmol/L (98-107); Estimated CRCL calculation 45 ml/min; Estimated Glomerular Filt Rate > 60; Glucose 85 mg/dL (65-110); Potassium 4.1 mmol/L (3.4-5.0); Sodium 137 mmol/L (137-145)
--- NOTE | 2021-08-02 12:09 | PC.NURSE ---
Called pts son per pts permission, spoke to Beni at [phone], discussed POC and gave update on pt status.
[2021-08-02 12:12] LABS: NT Pro B Type Natriuretic Pept 501 pg/mL (5-100)
[2021-08-02 12:15] LABS: Troponin I < 0.012 ng/mL (0.000-0.034)
[2021-08-02 12:56] VITALS: BP 157/78; PULSE 86; RESP 16; O2SAT 99
[2021-08-02 14:25] VITALS: BMI 10.0
[2021-08-02 14:31] LABS: Appearance Urine Clear (Clear); Bilirubin Urine Negative (Negative); Blood Urine 1+ (Negative); Glucose Urine UA Negative (Negative); Ketones Urine Negative (Negative); Leukocyte Esterase Ur Negative LEU/UL (Negative); Nitrate Urine Negative (Negative); Protein Urine Negative (Negative); Specific Grav Ur 1.015 (1.001-1.035); Urobilinogen Urine 0.2 mg/dL (<2.0)
[2021-08-02 14:37] LABS: Mucus Urine Rare /lpf; WBC Urine 0-3 /hpf
[2021-08-02 14:40] LABS: Add Urine Microscopic? YES; Color Urine Light Yellow (Yellow)
[2021-08-02 16:09] VITALS: BP 176/78; PULSE 86; RESP 16; O2SAT 100
[2021-08-02 16:34] VITALS: BMI 17.9
[2021-08-02 16:40] VITALS: BP 148/76; PULSE 90; RESP 20; TEMP 37; O2SAT 96
--- NOTE | 2021-08-02 16:47 | PC.NURSE ---
This patient, Anabel Quintero, was admitted to [facility] Surg Room 303-01. Patient/family oriented to hospital policies and general routines including ID bracelet, bed and alarms, visiting hours, pain management, procedures, bathroom and other care routines, personal items, smoking policy, room service/diet, and visiting hours. Information on how to activate the Rapid Response Team has been discussed. Patient/Family are encouraged to report perceived risks to care and to ask questions if they do not understand what they are told or what they should do.
--- NOTE | 2021-08-02 17:10 | PC.NURSE ---
Patient stated need to be suctioned, charge nurse attempted to suction, very thick mucous. Patient stated still needed to be suctioned as that wasn't enough and was having a difficult time. This nurse called respiratory, while waiting for respiratory, this nursing suctioned patient again, in between suctioning, patient coughed a dark brown plug from trach. Patient stated she felt better. Respiratory arrived, showed plug to therapist. Therapist began additional treatment to suction patient more.
--- NOTE | 2021-08-02 18:30 | PM.IMHP ---
H&P: HPI History of Present Illness Date/Time: 08/02/21 18:30 Chief Complaint: Fall. Narrative: This is a very pleasant 80-year-old female with Parkinson's disease, and I attributed to coronary vasospasms, chronic obstructive pulmonary disease, and laryngeal cancer status post laryngectomy who presented to the emergency department from home for evaluation after a fall from standing position. Obtaining a detailed history is difficult as she is status post laryngectomy. She can speak 1 or 2 words at a time while covering her stoma, majority of the history is obtained via a review of her electronic medical records as well as [facility] communication and yes/no questions. Her son Edil provides history as well. She apparently lives with Edil however it is my understanding that he works long hours and the patient is frequently home by herself. She previously had caregivers coming to the home however that is no longer the case for unclear reasons. She is now essentially wheelchair-bound and she is no longer able to get herself to the bathroom so she uses depends and tell her nor caregivers can come to clean her up. Today she was trying to transfer from the wheelchair to the couch but she was too weak to stand and pivot and she fell forward onto her knees. She cannot get herself up in used her Life Alert and on EMS arrival she initially declined transfer to the ER however she was brought in at the insistence of her son as he is worried that she is no longer able to safely live at home. On arrival she complained of mild right knee and shoulder pain with x-rays unremarkable for acute findings. At the time my evaluation she has no specific complaints. Review of Systems Review of Systems: Twelve systems were reviewed. No head trauma or loss of consciousness in the fall. Denies vertigo. No syncope or presyncope. No cold or flu symptoms. No fever, chills, or sweats. No sick contacts. No chest pain, pleuritic pain, or shortness of breath. Appetite is fair. No nausea, vomiting, diarrhea, or dysuria. Denies dysphagia. Except as documented, all other systems were reviewed and are negative. [facility] Past Medical History Medical History (Updated 08/02/21 @ 22:11 by Stacey Chan PA-C) Basal cell carcinoma of nose Chronic obstructive pulmonary disease, unspecified Hyperlipidemia Hypothyroidism (acquired) Laryngeal cancer Status post laryngectomy. 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 Normal coronary arteries on catheterization. Obstructive sleep apnea Osteoarthritis Parkinson's disease Small bowel obstruction due to adhesions Takotsubo syndrome Surgical History Surgical History (Updated 08/02/21 @ 21:51 by Stacey Chan PA-C) History of bowel resection Repair of strangulated hernia with bowel resection. History of cardiac catheterization History of colonoscopy with polypectomy History of laryngectomy History of laryngoscopy History of tonsillectomy History of total abdominal hysterectomy and bilateral salpingo-oophorectomy History of tracheostomy Status post surgical removal of malignant neoplasm of skin Family History Family History Father Family history of heart disease in male family member before age 55 Mother Family history of heart disease in male family member before age 55 Other Family history of malignant neoplasm Family history of malignant neoplasm of breast in first degree relative Social History Social History (Updated 08/02/21 @ 21:53 by Stacey Chan PA-C) Social History: Surrogate decision maker: Edil Alarconnolds, son. Code status: Full code. Smoking packs per day: 2 Smoking cigarettes per day: 40.0 Years smoked: 40 Smoking pack-years: 80.00 Smoking status: Former smoker Second hand tobacco smoke exposure: No Alcohol intake: former Substance use: unknown Additional living arrangements comments:
[2021-08-02 21:15] VITALS: O2SAT 96
[2021-08-02 22:00] VITALS: BP 149/80; PULSE 80; RESP 22; TEMP 37.4; O2SAT 98
[2021-08-03] VITALS (7 sets, daily range): BP systolic 122–137; BP diastolic 53–69; PULSE 60–92; RESP 16–24; TEMP 36.6–37.6; O2SAT 98–99
--- NOTE | 2021-08-03 02:24 | PC.NURSE ---
Pt c/o right knee pain 10/30, place call to , new order received.
[2021-08-03] MEDS: ACETAMINOPHEN 325 MG TABLET 650 MG PO (02:32)
[2021-08-03 07:37] LABS: Hemoglobin 10.5 g/dL (12.0-15.0); Mean Corpuscular HGB Conc 30.9 g/dl (32-36); Mean Corpuscular Hemoglobin 27.1 pg (26-34); Mean Corpuscular Volume 87.9 fl (80-100); Mean Platelet Volume 8.6 fl (7.4-10.4); Platelet Count Result 230 k/mm3 (150-375); Red Blood Count 3.87 M/mm3 (4.2-5.4); Red Cell Distribution Width 12.9 % (11.5-14.5); White Blood Count 3.4 K/mm3 (4.5-10.0)
[2021-08-03 07:58] LABS: Alanine Aminotransferase 8 U/L (6-35); Albumin Level 3.7 g/dL (3.5-5.1); Alkaline Phosphatase 56 U/L (38-126); Anion Gap 6 mmol/L (8-16); Aspartate Amino Transferase 20 U/L (14-36); Bilirubin,Total 0.6 mg/dL (0.2-1.3); Blood Urea Nitrogen 15 mg/dL (7-17); Calcium 8.3 mg/dL (8.4-10.2); Carbon Dioxide 25 mmol/L (22-30); Chloride 105 mmol/L (98-107); Estimated CRCL calculation 41 ml/min; Estimated Glomerular Filt Rate > 60; Glucose 81 mg/dL (65-110); Magnesium 2.2 mg/dL (1.6-2.3); Potassium 3.8 mmol/L (3.4-5.0); Sodium 136 mmol/L (137-145)
[2021-08-03 07:59] LABS: Glucose Point of Care 82 mg/dl (65-105)
[2021-08-03] MEDS: CARBIDOPA/LEVODOPA 25/100 MG TABLET 1 TABLET PO ×3 (08:43→17:51)
[2021-08-03] MEDS: METOCLOPRAMIDE HCL 10 MG TABLET PO ×2 (08:43→17:51)
[2021-08-03] MEDS: ACETAMINOPHEN ELIXIR 325 MG/10.15 ML UDC 650 MG PO (10:02)
--- NOTE | 2021-08-03 10:11 | PC.NURSE ---
to xray for swallow study per stretcher
[2021-08-03 10:47] LABS: Free T4 Free Thyroxine Reflex 1.01 ng/dL (0.78-2.19)
--- NOTE | 2021-08-03 10:51 | PCSTNOTE ---
Please refer to the Modified Barium Swallow Evaluation in the EMR.
[2021-08-03 14:26] LABS: Total Triiodothyronine (T3) 0.83 NG/ML (0.97-1.69)
--- NOTE | 2021-08-03 15:21 | PM.IMPN ---
Progress Note: A&P Assessment and Plan (1) Fall from standing: Qualifiers: Encounter type: sequela Qualified Code(s): W19.XXXS - Unspecified fall, sequela Code(s): W19.XXXA - Unspecified fall, initial encounter Status: Acute Assessment and Plan: Multifactoral Denied LOC (2) Generalized weakness: Code(s): R53.1 - Weakness Status: Acute Assessment and Plan: Likely due to chronic illness and disuse atrophy She is willing to attend rehab Await SNF rehab authorization vs denial 08/05/21 (3) Parkinson's disease: Code(s): G20 - Parkinson's disease Status: Chronic Assessment and Plan: Continue meds (4) Chronic obstructive pulmonary disease, unspecified: Qualifiers: COPD type: unspecified COPD Qualified Code(s): J44.9 - Chronic obstructive pulmonary disease, unspecified Code(s): J44.9 - Chronic obstructive pulmonary disease, unspecified Status: Acute Assessment and Plan: Clinically stable (5) Elevated blood pressure reading: Code(s): R03.0 - Elevated blood-pressure reading, without diagnosis of hypertension Status: Acute Subjective Date/time seen: 08/03/21 15:21 Interval history: August 03 visit. Denied pain. Weak. Transfers with assist from bed to wheelchair. Passed swallow study. Review of Systems Review of Systems: All systems reviewed & are unremarkable except as noted in HPI and below Exam Narrative: Chronically ill-appearing elderly female in no acute distress No JVD Chest with coarse breath sounds Heart regular rate Abdomen soft nontender Extremities no edema cyanosis or clubbing MS difuse weakness Neurologic titubation of head Objective Data Vital Signs Vital Signs: Vital Signs - 24 hr 08/02/21 16:09 08/02/21 16:40 08/02/21 21:15 Temperature 98.6 F Pulse Rate 86 90 Respiratory Rate 16 20 Blood Pressure 176/78 H 148/76 H Pulse Oximetry 100 96 96 08/02/21 22:00 08/03/21 06:00 08/03/21 08:00 Temperature 99.4 F 97.8 F Pulse Rate 80 71 60 Respiratory Rate 22 H 22 H Blood Pressure 149/80 H 124/65 Pulse Oximetry 98 98 08/03/21 12:00 Temperature Pulse Rate 80 Respiratory Rate Blood Pressure Pulse Oximetry Intake/Output Intake/Output: Intake & Output 07/31/21 08/01/21 08/02/21 08/03/21 23:59 23:59 23:59 23:59 Intake Total 100 630 Output Total 250 Balance -150 630 Meds/Results Medications: Active Medications Generic Name Dose Route Start Last Admin Trade Name Freq PRN Reason Stop Dose Admin Acetaminophen 650 mg 08/03/21 09:58 08/03/21 10:02 Acetaminophen Elixir 325 Mg/10.15 Ml Udc PO 650 mg Q6H PRN Administration Mild Pain (1-3) or Fever Carbidopa/Levodopa 1 tablet 08/03/21 08:00 08/03/21 14:06 Carbidopa/Levodopa 25/100 Mg Tablet PO 1 tablet TIDWM ADRIÁN Administration Docusate Sodium 100 mg 08/03/21 09:00 08/03/21 08:48 Docusate Sodium 100 Mg Capsule PO Not Given DAILY ADRIÁN Hyoscyamine 0.0625 mg 08/02/21 22:15 Hyoscyamine Sulfate 0.0625 Mg Tablet PO Q4H PRN Bladder Spasm Metoclopramide HCl 10 mg 08/03/21 08:00 08/03/21 08:43 Metoclopramide Hcl 10 Mg Tablet PO 10 mg BIDWM ADRIÁN Administration Radiology Results: ITS Impressions Knee X-Ray 08/02/21 12:55 IMPRESSION: 1. No right knee joint effusion or acute osseous abnormality. Shoulder X-Ray 08/02/21 12:57 IMPRESSION: Old healed proximal right humeral fracture with moderate secondary glenohumeral osteoarthritis. No acute osseous abnormality. Chest X-Ray 08/02/21 13:01 IMPRESSION: 1. Chronic elevation left hemidiaphragm with mild left basilar atelectasis. No other acute cardiopulmonary disease. Venous Doppler Study 08/03/21 11:22 IMPRESSION: No evidence of deep venous thrombosis of the lower extremities Modified Barium Swallow 08/03/21 14:23 IMPRESSION: Modified esophagram findings
--- NOTE | 2021-08-03 19:15 | PM.IMPN ---
Progress Note: A&P Assessment and Plan (1) Fall from standing: Qualifiers: Encounter type: sequela Qualified Code(s): W19.XXXS - Unspecified fall, sequela Code(s): W19.XXXA - Unspecified fall, initial encounter Status: Acute Assessment and Plan: Multifactoral Denied LOC (2) Generalized weakness: Code(s): R53.1 - Weakness Status: Acute Assessment and Plan: Likely due to chronic illness and disuse atrophy She is willing to attend rehab Await SNF rehab authorization vs denial 08/05/21 (3) Parkinson's disease: Code(s): G20 - Parkinson's disease Status: Chronic Assessment and Plan: Continue meds (4) Chronic obstructive pulmonary disease, unspecified: Qualifiers: COPD type: unspecified COPD Qualified Code(s): J44.9 - Chronic obstructive pulmonary disease, unspecified Code(s): J44.9 - Chronic obstructive pulmonary disease, unspecified Status: Acute Assessment and Plan: Clinically stable (5) Elevated blood pressure reading: Code(s): R03.0 - Elevated blood-pressure reading, without diagnosis of hypertension Status: Acute Subjective Date/time seen: 08/03/21 19:15 Interval history: 08/03. Weak. Parkinson's disease. Transfers from bed to wheelchair at home. Increased weakness and falling. Passed swallow test with speech therapy today. Denied chest pain or shortness of breath. Denied incontinence of bowel or bladder. Denied abdominal pain chest plain or shortness of breath. Denied edema. Denied abnormal bleeding. Wants to go to rehab and then return to her home and live by herself. Review of Systems Review of Systems: All systems reviewed & are unremarkable except as noted in HPI and below Exam Narrative: Chronically ill-appearing elderly female in no acute distress No JVD Chest with coarse breath sounds Heart regular rate Abdomen soft nontender Extremities no edema cyanosis or clubbing MS difuse weakness Neurologic titubation of head Objective Data Vital Signs Vital Signs: Vital Signs - 24 hr 08/02/21 21:15 08/02/21 22:00 08/03/21 06:00 Temperature 99.4 F 97.8 F Pulse Rate 80 71 Respiratory Rate 22 H 22 H Blood Pressure 149/80 H 124/65 Pulse Oximetry 96 98 98 08/03/21 08:00 08/03/21 12:00 08/03/21 15:45 Temperature Pulse Rate 60 80 Respiratory Rate Blood Pressure 132/53 L Pulse Oximetry 08/03/21 15:47 Temperature 99.6 F Pulse Rate 92 Respiratory Rate 16 Blood Pressure 122/57 L Pulse Oximetry 98 Intake/Output Intake/Output: Intake & Output 07/31/21 08/01/21 08/02/21 08/03/21 23:59 23:59 23:59 23:59 Intake Total 100 870 Output Total 250 Balance -150 870 Meds/Results Medications: Active Medications Generic Name Dose Route Start Last Admin Trade Name Freq PRN Reason Stop Dose Admin Acetaminophen 650 mg 08/03/21 09:58 08/03/21 10:02 Acetaminophen Elixir 325 Mg/10.15 Ml Udc PO 650 mg Q6H PRN Administration Mild Pain (1-3) or Fever Carbidopa/Levodopa 1 tablet 08/03/21 08:00 08/03/21 17:51 Carbidopa/Levodopa 25/100 Mg Tablet PO 1 tablet TIDWM ADRIÁN Administration Docusate Sodium 100 mg 08/03/21 09:00 08/03/21 08:48 Docusate Sodium 100 Mg Capsule PO Not Given DAILY ADRIÁN Hyoscyamine 0.0625 mg 08/02/21 22:15 Hyoscyamine Sulfate 0.0625 Mg Tablet PO Q4H PRN Bladder Spasm Metoclopramide HCl 10 mg 08/03/21 08:00 08/03/21 17:51 Metoclopramide Hcl 10 Mg Tablet PO 10 mg BIDWM ADRIÁN Administration Radiology Results: ITS Impressions Knee X-Ray 08/02/21 12:55 IMPRESSION: 1. No right knee joint effusion or acute osseous abnormality. Shoulder X-Ray 08/02/21 12:57 IMPRESSION: Old healed proximal right humeral fracture with moderate secondary glenohumeral osteoarthritis. No acute osseous abnormality. Chest X-Ray 08/02/21 13:01 IMPRESSION: 1. Chronic elevation left he
[2021-08-04 06:00] VITALS: BP 136/60; PULSE 87; RESP 24; TEMP 37.3; O2SAT 96
[2021-08-04 08:00] VITALS: PULSE 87; RESP 24; O2SAT 96
[2021-08-04] MEDS: DOCUSATE SODIUM 100 MG CAPSULE PO (08:19)
[2021-08-04] MEDS: CARBIDOPA/LEVODOPA 25/100 MG TABLET 1 TABLET PO ×3 (08:19→16:11)
[2021-08-04 08:39] LABS: Basophils Percent Auto 0.8 % (0.2-1.2); Eosinophils Percent Auto 0.8 % (0-4.4); Hematocrit 33.7 % (37.0-47.0); Hemoglobin 10.7 g/dL (12.0-15.0); Immature Granulocyte Absolute 0.06 K/mm3 (0.00-0.031); Immature Granulocyte Percent A 1.6 % (0-0.5); Lymphocytes Percent Auto 15.6 % (18.3-44.2); Mean Corpuscular HGB Conc 31.8 g/dl (32-36); Mean Corpuscular Hemoglobin 27.2 pg (26-34); Mean Corpuscular Volume 85.8 fl (80-100); Mean Platelet Volume 8.4 fl (7.4-10.4); Monocytes Absolute Auto 0.4 K/mm3 (0.1-0.6); Monocytes Percent Auto 9.4 % (2.6-8.5); Neutrophils Absolute Auto 2.8 K/mm3 (1.3-6.7); Neutrophils Percent Auto 71.8 % (45.5-73.1); Platelet Count Result 259 k/mm3 (150-375); Red Blood Count 3.93 M/mm3 (4.2-5.4); Red Cell Distribution Width 12.7 % (11.5-14.5); White Blood Count 3.8 K/mm3 (4.5-10.0)
[2021-08-04 08:43] LABS: Anion Gap 5 mmol/L (8-16); Blood Urea Nitrogen 15 mg/dL (7-17); CRP 1.7 mg/dL (<1.0); Calcium 8.2 mg/dL (8.4-10.2); Carbon Dioxide 27 mmol/L (22-30); Chloride 103 mmol/L (98-107); Estimated CRCL calculation 37 ml/min; Estimated Glomerular Filt Rate 60; Glucose 84 mg/dL (65-110); Potassium 4.1 mmol/L (3.4-5.0); Sodium 135 mmol/L (137-145)
--- NOTE | 2021-08-04 12:03 | PM.IMPN ---
Progress Note: A&P Assessment and Plan (1) Fall from standing: Qualifiers: Encounter type: sequela Qualified Code(s): W19.XXXS - Unspecified fall, sequela Code(s): W19.XXXA - Unspecified fall, initial encounter Status: Acute Assessment and Plan: Multifactoral Denied LOC (2) Generalized weakness: Code(s): R53.1 - Weakness Status: Acute Assessment and Plan: Likely due to chronic illness and disuse atrophy She is willing to attend rehab Await SNF rehab authorization vs denial 08/05/21 (3) Parkinson's disease: Code(s): G20 - Parkinson's disease Status: Chronic Assessment and Plan: Continue meds (4) Chronic obstructive pulmonary disease, unspecified: Qualifiers: COPD type: unspecified COPD Qualified Code(s): J44.9 - Chronic obstructive pulmonary disease, unspecified Code(s): J44.9 - Chronic obstructive pulmonary disease, unspecified Status: Acute Assessment and Plan: Clinically stable (5) Elevated blood pressure reading: Code(s): R03.0 - Elevated blood-pressure reading, without diagnosis of hypertension Status: Acute Assessment and Plan: BP reviewed and acceptable 08/04. Subjective Date/time seen: 08/04/21 12:03 Interval history: 08/04 visit. Denied any changes from yesterday. Tolerating diet and therapy. Review of Systems Review of Systems: All systems reviewed & are unremarkable except as noted in HPI and below Exam Narrative: Chronically ill-appearing elderly female in no acute distress No JVD Chest with coarse breath sounds Heart regular rate Abdomen soft nontender Extremities no edema cyanosis or clubbing MS difuse weakness Neurologic titubation of head Objective Data Vital Signs Vital Signs: Vital Signs - 24 hr 08/03/21 15:45 08/03/21 15:47 08/03/21 20:00 Temperature 99.6 F Pulse Rate 92 92 Respiratory Rate 16 16 Blood Pressure 132/53 L 122/57 L Pulse Oximetry 98 98 08/03/21 22:00 08/04/21 06:00 08/04/21 08:00 Temperature 99.1 F 99.2 F Pulse Rate 80 87 87 Respiratory Rate 24 H 24 H 24 H Blood Pressure 137/69 136/60 Pulse Oximetry 99 96 96 Intake/Output Intake/Output: Intake & Output 05/1208/02/21 08/03/21 08/04/21 23:59 23:59 23:59 23:59 Intake Total 100 1110 580 Output Total 250 Balance -150 1110 580 Meds/Results Medications: Active Medications Generic Name Dose Route Start Last Admin Trade Name Staci PRN Reason Stop Dose Admin Acetaminophen 650 mg 08/03/21 09:58 08/03/21 10:02 Acetaminophen Elixir 325 Mg/10.15 Ml Udc PO 650 mg Q6H PRN Administration Mild Pain (1-3) or Fever Carbidopa/Levodopa 1 tablet 08/03/21 08:00 08/04/21 08:19 Carbidopa/Levodopa 25/100 Mg Tablet PO 1 tablet TIDWM ADRIÁN Administration Docusate Sodium 100 mg 08/03/21 09:00 08/04/21 08:19 Docusate Sodium 100 Mg Capsule PO 100 mg DAILY ADRIÁN Administration Hyoscyamine 0.0625 mg 08/02/21 22:15 Hyoscyamine Sulfate 0.0625 Mg Tablet PO Q4H PRN Bladder Spasm Radiology Results: ITS Impressions Knee X-Ray 08/02/21 12:55 IMPRESSION: 1. No right knee joint effusion or acute osseous abnormality. Shoulder X-Ray 08/02/21 12:57 IMPRESSION: Old healed proximal right humeral fracture with moderate secondary glenohumeral osteoarthritis. No acute osseous abnormality. Chest X-Ray 08/02/21 13:01 IMPRESSION: 1. Chronic elevation left hemidiaphragm with mild left basilar atelectasis. No other acute cardiopulmonary disease. Venous Doppler Study 08/03/21 11:22 IMPRESSION: No evidence of deep venous thrombosis of the lower extremities Modified Barium Swallow 08/03/21 14:23 IMPRESSION: Modified esophagram findings as above. Please refer to the speech therapy report for specific recommendations. Labs Labs: Laboratory Results - last 24 hr 08/03/21 08/04/21 08/04/21 07:14
[2021-08-04 14:01] VITALS: O2SAT 92
[2021-08-04 18:47] VITALS: BP 131/54; PULSE 93; RESP 16; TEMP 37.3; O2SAT 96
[2021-08-04 20:00] VITALS: O2SAT 94
[2021-08-04 21:08] VITALS: BP 144/60; PULSE 81; RESP 20; TEMP 36.6; O2SAT 97
[2021-08-05] VITALS (7 sets, daily range): BP systolic 112–149; BP diastolic 49–72; PULSE 78–86; RESP 16–20; TEMP 36.1–37.2; O2SAT 94–98
[2021-08-05] MEDS: ACETAMINOPHEN ELIXIR 325 MG/10.15 ML UDC 650 MG PO (00:54)
[2021-08-05 06:46] LABS: Basophils Percent Auto 0.5 % (0.2-1.2); Hematocrit 34.3 % (37.0-47.0); Hemoglobin 10.9 g/dL (12.0-15.0); Immature Granulocyte Absolute 0.02 K/mm3 (0.00-0.031); Immature Granulocyte Percent A 0.5 % (0-0.5); Lymphocytes Absolute Auto 0.75 K/mm3 (0.9-3.2); Mean Corpuscular HGB Conc 31.8 g/dl (32-36); Mean Corpuscular Hemoglobin 27.3 pg (26-34); Mean Corpuscular Volume 85.8 fl (80-100); Mean Platelet Volume 8.3 fl (7.4-10.4); Monocytes Absolute Auto 0.4 K/mm3 (0.1-0.6); Monocytes Percent Auto 10.7 % (2.6-8.5); Neutrophils Absolute Auto 2.7 K/mm3 (1.3-6.7); Neutrophils Percent Auto 68.3 % (45.5-73.1); Platelet Count Result 272 k/mm3 (150-375); Red Cell Distribution Width 12.7 % (11.5-14.5); White Blood Count 3.9 K/mm3 (4.5-10.0)
[2021-08-05 07:00] LABS: Anion Gap 3 mmol/L (8-16); Blood Urea Nitrogen 15 mg/dL (7-17); CRP 1.8 mg/dL (<1.0); Calcium 8.2 mg/dL (8.4-10.2); Carbon Dioxide 28 mmol/L (22-30); Chloride 105 mmol/L (98-107); Estimated CRCL calculation 37 ml/min; Estimated Glomerular Filt Rate 60; Glucose 84 mg/dL (65-110); Potassium 3.8 mmol/L (3.4-5.0); Sodium 136 mmol/L (137-145)
[2021-08-05] MEDS: DOCUSATE SODIUM 100 MG CAPSULE PO (08:00)
[2021-08-05] MEDS: CARBIDOPA/LEVODOPA 25/100 MG TABLET 1 TABLET PO ×3 (08:00→16:01)
--- NOTE | 2021-08-05 16:14 | PM.IMPN ---
Progress Note: A&P Assessment and Plan (1) Fall from standing: Qualifiers: Encounter type: sequela Qualified Code(s): W19.XXXS - Unspecified fall, sequela Code(s): W19.XXXA - Unspecified fall, initial encounter Status: Acute Assessment and Plan: Patient sustained mechanical fall while attempting to transfer from wheelchair to couch Denied loss of consciousness No injuries (2) Generalized weakness: Code(s): R53.1 - Weakness Status: Acute Assessment and Plan: Likely due to chronic illness and disuse atrophy Appreciate PT/OT eval Rehab considered, however patient and family have stated they do not wish to proceed with this as she did not have benefit from rehab in the past Considering [facility] placement Care coordination following (3) Parkinson's disease: Code(s): G20 - Parkinson's disease Status: Chronic Assessment and Plan: No acute issues Continue carbidopa-levodopa (4) Chronic obstructive pulmonary disease, unspecified: Qualifiers: COPD type: unspecified COPD Qualified Code(s): J44.9 - Chronic obstructive pulmonary disease, unspecified Code(s): J44.9 - Chronic obstructive pulmonary disease, unspecified Status: Acute Assessment and Plan: Not in acute exacerbation Albuterol available as needed (5) Elevated blood pressure reading: Code(s): R03.0 - Elevated blood-pressure reading, without diagnosis of hypertension Status: Acute Assessment and Plan: Blood pressure reviewed and has been acceptable. Last BP 136/49 Subjective Date/time seen: 08/05/21 16:14 Interval history: Date of service: 08/05/2021 Anabel Quintero is 80-year-old female with a history of Parkinson's disease, laryngeal cancer status post laryngectomy, coronary artery disease, COPD who is seen in follow-up for weakness. Communication is limited given her history of laryngectomy but she is able to answer most questions either with yes or no or mouthing responses. She states she is feeling fine today. She is not in any pain. Denies feeling weak. Denies shortness of breath or chest pain. She is able to tell me that she needs to go to the bathroom and has been using a bedpan. She asked me to call her son, Ed, to determine next steps Spoke with her son Ed via phone. He reports at this time they would like to consider [facility] arrangements as she is having increased difficulty caring for herself at home. This information was relayed to care coordination. Review of Systems Review of Systems: All systems reviewed & are unremarkable except as noted in HPI and below Exam Narrative: General: Thin, frail 80-year-old female, sitting up in bed, comfortable, NARD Neuro: awake, alert and oriented x4, no focal neuro deficits noted HEENMT: normocephalic, atraumatic, EOMI, sclerae anicteric Neck: Patent stoma present Respiratory: clear to auscultation bilaterally, nonlabored breathing Cardio: regular rate, regular rhythm with S1-S2 Abdomen: nondistended, normoactive bowel sounds, soft, nontender to palpation Extremities: no edema, erythema, or tenderness to palpation Skin: no rashes or lesions, warm and dry Psych: Pleasant, appropriate mood and affect, judgment and insight intact Objective Data Vital Signs Vital Signs: Vital Signs - 24 hr 08/04/21 18:47 08/04/21 20:00 08/04/21 21:08 Temperature 99.1 F 97.8 F Pulse Rate 93 81 Respiratory Rate 16 20 Blood Pressure 131/54 L 144/60 H Pulse Oximetry 96 94 97 08/05/21 05:23 08/05/21 08:00 08/05/21 09:10 Temperature 97 F L Pulse Rate 86 86 Respiratory Rate 20 20 Blood Pressure 148/68 H 143/72 H Pulse Oximetry 98 95 95 08/05/21 14:00 08/05/21 15:44 Temperature 97.8 F Pulse Rate 78 Respiratory Rate 16 Blood Pressure 136/49 L Pulse Oximetry 96 94 Intake/Output Intake/Output: Intake & Output 08/02/21 08/03/21
[2021-08-06 06:00] VITALS: BP 165/64; PULSE 88; RESP 20; TEMP 36.3; O2SAT 95
[2021-08-06 06:34] LABS: Albumin Level 3.7 g/dL (3.5-5.1); Anion Gap 6 mmol/L (8-16); Blood Urea Nitrogen 18 mg/dL (7-17); Calcium 8.3 mg/dL (8.4-10.2); Carbon Dioxide 25 mmol/L (22-30); Chloride 101 mmol/L (98-107); Estimated CRCL calculation 37 ml/min; Estimated Glomerular Filt Rate 60; Glucose 87 mg/dL (65-110); Potassium 4.4 mmol/L (3.4-5.0); Sodium 132 mmol/L (137-145)
[2021-08-06] MEDS: CALCIUM CARBONATE (TUMS) 500 MG (200 MG ELEMENTAL) PO (08:21)
[2021-08-06] MEDS: CARBIDOPA/LEVODOPA 25/100 MG TABLET 1 TABLET PO ×2 (08:24→12:20)
[2021-08-06 08:48] VITALS: O2SAT 94
[2021-08-06] MEDS: DOCUSATE SODIUM 100 MG CAPSULE PO (10:02)
[2021-08-06 11:49] VITALS: BMI 18.6
[2021-08-06 14:00] VITALS: BP 109/52; PULSE 85; RESP 20; TEMP 37.4; O2SAT 94
--- NOTE | 2021-08-06 14:43 | PM.DS ---
DS: Admitting Diagnosis Discharge Date 08/06/2021 Admitting Diagnosis Fall, weakness DS: Discharge Diagnosis Discharge Diagnosis (1) Fall from standing: Qualifiers: Encounter type: sequela Qualified Code(s): W19.XXXS - Unspecified fall, sequela Code(s): W19.XXXA - Unspecified fall, initial encounter Status: Acute Assessment and Plan: Patient sustained mechanical fall while attempting to transfer from wheelchair to couch Denied loss of consciousness No injuries Fall precautions implemented. (2) Generalized weakness: Code(s): R53.1 - Weakness Status: Acute Assessment and Plan: Likely due to chronic illness and disuse atrophy Participated in PT/OT during admission Rehab considered, however patient and family stated they did not wish to proceed with this as she did not have benefit from rehab in the past Patient has been accepted to [facility] (3) Parkinson's disease: Code(s): G20 - Parkinson's disease Status: Chronic Assessment and Plan: No acute issues Continue carbidopa-levodopa (4) Chronic obstructive pulmonary disease, unspecified: Qualifiers: COPD type: unspecified COPD Qualified Code(s): J44.9 - Chronic obstructive pulmonary disease, unspecified Code(s): J44.9 - Chronic obstructive pulmonary disease, unspecified Status: Acute Assessment and Plan: Not in acute exacerbation Albuterol available as needed (5) Elevated blood pressure reading: Code(s): R03.0 - Elevated blood-pressure reading, without diagnosis of hypertension Status: Acute Assessment and Plan: Patient did have some elevated blood pressure readings during admission but most blood pressure readings were stable. Defer initiating antihypertensives Blood pressures to be monitored at nursing facility. 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 Recommended regular diet with regular consistency liquids. Aspiration precautions implemented Noted by RN to have difficulty swallowing metoclopramide tablets which was changed to liquid solution prn and docusate tablets which were changed to liquid solution. DS: Summary Hospital Course Hospital Course: Date of admission: 08/02/2021 Date of discharge: 08/06/2021 Anabel Quintero is 80-year-old female with a history of Parkinson's disease, laryngeal cancer status post laryngectomy, coronary artery disease, COPD who presented to the emergency department 08/02/2021 from home after having fall. She has noticed progressive weakness over the last several weeks and feels that this contributed to her fall. On presentation to the ED, her vital signs were stable, knee and shoulder x-ray showed no osseous abnormalities, CXR showed no acute cardiopulmonary disease. She was admitted to the hospitalist service for further evaluation and management. Please see above for further details. She remains hospitalized while seeking [facility] placement as patient and family felt that she could no longer live at home independently. She was accepted to [facility]. The patient was discharged in hemodynamically stable condition on 08/06/2021. Status at Discharge Overall status at discharge: patient is progressing back to baseline Time Spent with Patient Time attestation: Total time spent providing and/or coordinating discharge services: 45 minutes Time spent: Greater than 30 minutes Exam Narrative: General: Thin, frail 80-year-old female, sitting in a chair by the bedside, comfor
[2021-08-06 15:56] LABS: EDCOVIDSCREEN Negative (Negative)
[2021-08-06 15:57] VITALS: TEMP 36.5
== END 2021-08-06 16:27 ==
LOC: ANHED 11:49 → ANH3MEDSUR 15:24
PROVIDERS: Internal Medicine; Physician Assistant; Admitting Provider Internal Medicine; Emergency Provider Nurse Practitioner Family; PCP Internal Medicine; Visit Provider Internal Medicine
DX: R53.1 Weakness (principal); M25.561 Pain in right knee; W19.XXXA Unspecified fall, initial encounter; M62.50 Muscle wasting and atrophy, not elsewhere classified, unspecified site; M25.511 Pain in right shoulder; M19.90 Unspecified osteoarthritis, unspecified site; E78.5 Hyperlipidemia, unspecified; E03.9 Hypothyroidism, unspecified; G47.33 Obstructive sleep apnea (adult) (pediatric); G20 Parkinson's disease; I25.10 Atherosclerotic heart disease of native coronary artery without angina pectoris; I25.2 Old myocardial infarction; J44.9 Chronic obstructive pulmonary disease, unspecified; R03.0 Elevated blood-pressure reading, without diagnosis of hypertension; R60.0 Localized edema; Z66 Do not resuscitate; Z20.822 Contact with and (suspected) exposure to COVID-19; Z85.21 Personal history of malignant neoplasm of larynx; Z90.02 Acquired absence of larynx; Z85.828 Personal history of other malignant neoplasm of skin; Z90.710 Acquired absence of both cervix and uterus; Z87.891 Personal history of nicotine dependence
CPT/HCPCS: 36415; 51701; 71045; 73030; 73562; 80048; 80053; 81001; 82040; 82948; 83735; 83880; 84439; 84443; 84480; 84484; 85025; 85027; 86140; 87426; 92611; 93005; 93970; 97110; 97161; 97166; 97530; 97535; 99285; A9270; C9803; G0378

== ENCOUNTER 2021-08-08 11:16 | Emergency (ER) | payer OTHER, SELFPAY ==
[2021-08-08 11:27] VITALS: BP 120/53; PULSE 80; RESP 16; TEMP 37; O2SAT 100
[2021-08-08 12:43] VITALS: BP 120/78; PULSE 78; RESP 16; O2SAT 98
--- NOTE | 2021-08-08 12:49 | ED.WOUNDLAC ---
HPI - Wound/Laceration General Chief Complaint: Wound/Laceration Stated Complaint: skin infection to stoma Time Seen by Provider: 08/08/21 12:31 Source: patient History of Present Illness HPI narrative: Patient presents from a rehab facility with a scar in her stoma. She had a brief period of shortness of breath she was suctioned and felt much improved after suctioning the rehab facility noted a scab inside her trach they were concerned so she came to the ER for evaluation. Patient has no complaints she has no shortness of breath no fevers no pain no lightheadedness no dizziness. She reports she chronically has a scab in her stoma that is evaluated by ENT at [facility] every 3 to 4 months she last saw them 2 months ago. Related Data Home Medications Medication Instructions Recorded Confirmed ipratropium-albuterol ml INHALATION 02/10/21 Allergies Allergy/AdvReac Type Severity Reaction Status Date / Time No Known Allergies Allergy Verified 12/31/19 11:05 Review of Systems Review of Systems: CONSTITUTIONAL: Denies fever, chills, or sweats. EYES: Denies visual changes, redness, or discharge. ENT: Denies rhinorrhea, congestion, sore throat, or otalgia. CARDIOVASCULAR: Denies chest pain, palpitations, or edema. RESPIRATORY: Denies cough or dyspnea. GASTROINTESTINAL: Denies abdominal pain, nausea, vomiting, or diarrhea. GENITOURINARY: Denies dysuria or hematuria. SKIN: Denies rash or itching. MUSCULOSKELETAL: Denies back pain, joint pain, or myalgia. NEUROLOGIC: Denies headache, numbness, dizziness, or weakness. PSYCHIATRIC: Denies anxiety or depression. All systems reviewed & are unremarkable except as noted in HPI and below PMFSH Past Medical History Medical History Basal cell carcinoma of nose Chronic obstructive pulmonary disease, unspecified Hyperlipidemia Hypothyroidism (acquired) Laryngeal cancer Status post laryngectomy. 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 Normal coronary arteries on catheterization. 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 History of cardiac catheterization History of colonoscopy with polypectomy History of laryngectomy History of laryngoscopy History of tonsillectomy History of total abdominal hysterectomy and bilateral salpingo-oophorectomy History of tracheostomy Status post surgical removal of malignant neoplasm of skin Family History Family History Father Family history of heart disease in male family member before age 55 Mother Family history of heart disease in male family member before age 55 Other Family history of malignant neoplasm Family history of malignant neoplasm of breast in first degree relative Social History Social History Social History: Surrogate decision maker: Edil Quintero, son. Code status: Full code. Smoking packs per day: 2 Smoking cigarettes per day: 40.0 Years smoked: 40 Smoking pack-years: 80.00 Smoking status: Former smoker Second hand tobacco smoke exposure: No Alcohol intake: former Substance use: unknown Additional living arrangements comments: . Has a children. Spiritual care concerns: No Exam Narrative: GENERAL: Well-appearing, well-nourished, and in no acute distress. HEAD: Normocephalic, atraumatic. EYES: PERRLA and EOMI. ENT: Nares clear, no rhinorrhea or epistaxis. Mucous membranes moist. NECK: Supple. No masses. No JVD. Chronic trach stoma without erythema edema or irritation. There is a plastic prosthesis device flush up against the stoma
--- NOTE | 2021-08-08 12:55 | PC.NURSE ---
REPORTS CALLED TO [facility]
[2021-08-08 13:30] VITALS: BP 142/55; PULSE 77; RESP 19; O2SAT 100
== END 2021-08-08 13:35 ==
PROVIDERS: Emergency Provider Emergency Medicine; PCP Internal Medicine
DX: Z43.0 Encounter for attention to tracheostomy (principal); E78.5 Hyperlipidemia, unspecified; E03.9 Hypothyroidism, unspecified; G20 Parkinson's disease; Z85.22 Personal history of malignant neoplasm of nasal cavities, middle ear, and accessory sinuses; Z87.891 Personal history of nicotine dependence
CPT/HCPCS: 99281

== ENCOUNTER 2021-11-29 15:21 | Emergency (ER) | payer MEDICARE, SELFPAY ==
[2021-11-29] VITALS (7 sets, daily range): BP systolic 112–160; BP diastolic 51–67; PULSE 73–89; RESP 12–21; TEMP 36.5; O2SAT 97–100
--- NOTE | ~2021-11-29 | CT_ITS ---
EXAMINATION: CT abdomen pelvis w con DATE: 11/29/2021 19:13 INDICATION: Lower abdominal pain and constipation TECHNIQUE: Computed tomography (CT) of the abdomen and pelvis was performed with 100 mL Omnipaque-350 intravenous contrast. Automated exposure control and iterative reconstruction technique were employe d. The dose-length product was 305.44 mGy-cm. COMPARISON: 02/10/2021 FINDINGS: Chronic elevation of left hemidiaphragm with left basilar compressive atelectasis. Additional depende nt atelectasis in bilateral lower lobes along with trace dependently layering left pleural effusion. Heart is shifted towards the right due to the elevation right hemidiaphragm and is normal in size. At herosclerotic coronary artery calcification. No pericardial effusion. Enlargement of the central pulm onary arteries consistent with pulmonary arterial hypertension. Liver, gallbladder, spleen, pancreas, bilateral adrenal glands and kidneys are normal. There is prominent wall thickening and surrounding edema and stranding at the stool-filled rectum and distal sigmoid colon consistent with colitis, pote ntially stercoral colitis. Moderate amount of stool in the more proximal colon. Small bowel anastomos is in the left abdomen. There are multiple fluid and gas-filled loops of small bowel in the left abdo men with 1 segment dilated to approximately 4.1 cm the remainder remaining within normal limits. No d iscrete transition point identified. The appendix is not visualized. No pericecal inflammatory change to suggest acute appendicitis. Bladder is normal. The uterus is not identified and has likely been s urgically resected. No free intraperitoneal gas or fluid. No pathologically enlarged abdominal or pel gavino lymphadenopathy. There is calcified atherosclerosis of the aorta and many of the other arteries. Moderate thoracolumbar dextroscoliosis with severe spondylosis. IMPRESSION: 1. Wall thickening and surrounding edema and inflammatory stranding most likely stercoral colitis wit h differential including infection, interstitial disease or less likely ischemia. 2. Multiple gas and fluid-filled loops of small bowel, short segment of which appears dilated to salvatore ure within normal limits. No discrete transition point to suggest obstruction and would favor ileus o rogelio obstruction. 3. Chronic elevation of left hemidiaphragm with left basilar atelectasis. Reviewed, dictated and finalized at location A. IMPRESSION: 1. Wall thickening and surrounding edema and inflammatory stranding most likely stercoral colitis with differential including infection, interstitial disease or less likely ischemia. 2. Multiple gas and fluid-filled loops of small bowel, short segment of which a ppears dilated to measure within normal limits. No discrete transition point to suggest obstruction and would favor ileus over obstruction. 3. Chronic elevation of left hemidiaphragm with left basilar atelectasis.
[2021-11-29 17:19] LABS: Basophils Percent Auto 0.4 % (0.2-1.2); Eosinophils Absolute Auto 0.1 K/mm3 (0-0.3); Hematocrit 30.9 % (37.0-47.0); Hemoglobin 9.3 g/dL (12.0-15.0); Immature Granulocyte Absolute 0.03 K/mm3 (0.00-0.031); Immature Granulocyte Percent A 0.5 % (0-0.5); Lymphocytes Absolute Auto 1.27 K/mm3 (0.9-3.2); Lymphocytes Percent Auto 23.2 % (18.3-44.2); Mean Corpuscular HGB Conc 30.1 g/dl (32-36); Mean Corpuscular Hemoglobin 26.6 pg (26-34); Mean Corpuscular Volume 88.3 fl (80-100); Mean Platelet Volume 8.3 fl (7.4-10.4); Monocytes Absolute Auto 0.5 K/mm3 (0.1-0.6); Monocytes Percent Auto 8.4 % (2.6-8.5); Neutrophils Absolute Auto 3.6 K/mm3 (1.3-6.7); Neutrophils Percent Auto 65.5 % (45.5-73.1); Platelet Count Result 330 k/mm3 (150-375); Red Cell Distribution Width 15.4 % (11.5-14.5); White Blood Count 5.5 K/mm3 (4.5-10.0)
[2021-11-29 17:28] LABS: Alanine Aminotransferase 10 U/L (6-35); Albumin Level 3.2 g/dL (3.5-5.1); Alkaline Phosphatase 56 U/L (38-126); Anion Gap 11 mmol/L (8-16); Aspartate Amino Transferase 14 U/L (14-36); Bilirubin,Total 0.2 mg/dL (0.2-1.3); Blood Urea Nitrogen 9 mg/dL (7-17); Calcium 7.9 mg/dL (8.4-10.2); Carbon Dioxide 26 mmol/L (22-30); Chloride 101 mmol/L (98-107); Estimated CRCL calculation 51 ml/min; Estimated Glomerular Filt Rate > 60; Glucose 86 mg/dL (65-110); Lipase 29 U/L (23-300); Potassium 2.9 mmol/L (3.4-5.0); Sodium 138 mmol/L (137-145)
[2021-11-29 17:53] LABS: Appearance Urine Clear (Clear); Bilirubin Urine Negative (Negative); Blood Urine Negative (Negative); Color Urine Yellow (Yellow); Glucose Urine UA Negative (Negative); Ketones Urine Negative (Negative); Leukocyte Esterase Ur Negative LEU/UL (Negative); Nitrate Urine Negative (Negative); Protein Urine Negative (Negative); Specific Grav Ur 1.025 (1.001-1.035); Urobilinogen Urine 0.2 mg/dL (<2.0)
[2021-11-29 18:17] LABS: Add Urine Microscopic? NO
--- NOTE | 2021-11-29 18:28 | ED.GENADULT ---
HPI - General Adult General Chief complaint: Unspecified Stated complaint: constipated x 1 week Time Seen by Provider: 11/29/21 17:38 Source: patient, RN notes reviewed and old records reviewed Mode of arrival: EMS Limitations: language barrier (tracheostomy status) History of Present Illness HPI narrative: Patient is an 81-year-old female who presents the ED via EMS with report of constipation. [facility] 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 She reports having chronic issues with constipation. She states her last bowel movement was small and 3 days ago. Per shelter reports, patient has been receiving daily [facility] x-rays since 11/22 showing a colonic ileus. Patient has been receiving several constipation therapies at the shelter without relief. She complains of intermittent abdominal pain in her lower abdomen, intermittent nausea. She denies any vomiting, rectal bleeding, melena, fevers. Patient is wheel-chair/bed bound, does not ambulate. Related Data Home Medications Medication Instructions Recorded Confirmed ipratropium 0.5 mg-albuterol 3 mg ml inhalation 02/10/21 (2.5 mg base)/3 mL nebulization soln Allergies Allergy/AdvReac Type Severity Reaction Status Date / Time No Known Allergies Allergy Verified 12/31/19 11:05 Review of Systems Review of Systems: CONSTITUTIONAL: Denies fever, chills, or sweats. CARDIOVASCULAR: Denies chest pain. RESPIRATORY: Denies dyspnea. GASTROINTESTINAL: Reports lower abdomen pain, nausea, constipation. Denies rectal bleeding, melena, vomiting, or diarrhea. GENITOURINARY: Denies dysuria or hematuria. All systems reviewed & are unremarkable except as noted in HPI and below PMFSH Past Medical History Medical History Basal cell carcinoma of nose Chronic obstructive pulmonary disease, unspecified Hyperlipidemia Hypothyroidism (acquired) Laryngeal cancer Status post laryngectomy. 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 Normal coronary arteries on catheterization. 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 History of cardiac catheterization History of colonoscopy with polypectomy History of laryngectomy History of laryngoscopy History of tonsillectomy History of total abdominal hysterectomy and bilateral salpingo-oophorectomy History of tracheostomy Status post surgical removal of malignant neoplasm of skin Family History Family History Father Family history of heart disease in male family member before age 55 Mother Family history of heart disease in male family member before age 55 Other Family history of malignant neoplasm Family history of malignant neoplasm of breast in first degree relative Social History Social History Social History: Surrogate decision maker: Edil Quintero, son. Code status: Full code. Smoking packs per day: 2 Smoking cigarettes per day: 40.0 Years smoked: 40 Smoking pack-years: 80.00 Smoking status: Former smoker Second hand tobacco smoke exposure: No Alcohol intake: former Substance use: unknown Additional living arrangements comments: . Has a children. Spiritual care concerns: No Exam Narrative: GENERAL: Chronically ill appearing, thin, non-toxic, in no acute distress. HEAD: Normocephalic, atraumatic. NECK: Supple. No adenopathy, no masses. Chronic tracheostomy, stoma w/o signs of infection. RESPIRATORY: Airway patent, res
--- NOTE | 2021-11-29 18:53 | PC.NURSE ---
Pt to CT
[2021-11-29] MEDS: ONDANSETRON INJ 4 MG/2 ML VIAL IV PUSH (19:18)
[2021-11-29] MEDS: SODIUM CHLORIDE 0.9% IV 1,000 ML 999 ML IV CONT (19:18)
[2021-11-29] MEDS: POTASSIUM CHLORIDE 20 MEQ PACKET (FOR LIQUID) 40 MEQ PO (20:32)
[2021-11-29 20:56] LABS: Lactic Acid Reflex 0.7 mmol/L (0.7-2.0)
--- NOTE | 2021-11-29 23:18 | PC.NURSE ---
called [facility] to request transport. ETA [id number]
[2021-11-30 00:18] VITALS: BP 128/84; PULSE 88; RESP 20; O2SAT 99
--- NOTE | 2021-11-30 01:57 | PC.NURSE ---
called [facility] for ETA update. ETA 45 minutes.
--- NOTE | 2021-11-30 02:27 | PC.NURSE ---
[facility] here.
[2021-11-30 02:41] VITALS: BP 180/88; PULSE 88; RESP 24; O2SAT 99
== END 2021-11-30 02:42 ==
PROVIDERS: Physician Assistant; Emergency Provider Emergency Medicine; PCP Internal Medicine
DX: K59.09 Other constipation (principal); K56.7 Ileus, unspecified; E87.6 Hypokalemia; J44.9 Chronic obstructive pulmonary disease, unspecified; G20 Parkinson's disease; E78.5 Hyperlipidemia, unspecified; E03.9 Hypothyroidism, unspecified; I25.2 Old myocardial infarction; G47.33 Obstructive sleep apnea (adult) (pediatric); M19.90 Unspecified osteoarthritis, unspecified site; I51.81 Takotsubo syndrome; Z93.0 Tracheostomy status; Z90.710 Acquired absence of both cervix and uterus; Z90.722 Acquired absence of ovaries, bilateral; Z85.21 Personal history of malignant neoplasm of larynx; Z85.828 Personal history of other malignant neoplasm of skin; Z87.891 Personal history of nicotine dependence; Z99.3 Dependence on wheelchair
CPT/HCPCS: 36415; 51701; 74177; 80053; 81003; 83605; 83690; 85025; 96361; 96374; 99283; A9270; J2405; J7030; Q9967